=== PATIENT | male | born 1985 | race Caucasian/White ===

== ENCOUNTER 2020-02-15 15:37 | Emergency (ER) | payer SELFPAY ==
[2020-02-15] MEDS ORDERED: LORAZEPAM INJ 2 MG/1 ML VIAL IV ONE ×2 (15:58→17:10)
--- NOTE | 2020-02-15 16:06 | ER Document Report ---
ED General - General Chief Complaint: Seizure Stated Complaint: LEFT ARM PAIN,SPEECH SLURRED Time Seen by Provider: 02/15/20 16:04 Mode of Arrival: Wheelchair Information source: Patient, Parent Notes: Patient is a 34-year-old male was brought into the emergency room by his mother with complaint that he has had an altered mental status for the past week. Mother states that he does drink alcohol heavily patient states he is cut down to approximately a pint a day. Denies any past medical history. During physical examination however patient went into a full-blown tonic-clonic seizure so further evaluation at that time was not able to be done. Patient was taken to room 18 where he was given an IV and 2 mg of Ativan. Mother states that she has a history of diabetes and hypertension but he is not been checked ever. He does smoke denies any narcotics. No history of seizures in the past. He works as a cook at a local restaurant. Physical examination: Patient is a well-nourished well-developed 34-year-old male who on initial examination was answering questions appropriately when he went into full-blown seizure. TRAVEL OUTSIDE OF THE [place] IN LAST 30 DAYS: No - Related Data Allergies/Adverse Reactions: No Known Allergies Allergy (Verified 04/09/13 17:23) Past Medical History - Social History Smoking Status: Current Every Day Smoker Family History: Arthritis, CAD, CVA, DM, Hyperlipidemia, Hypertension, Malignan cy Patient has homicidal ideation: No Neurological Medical History: Reports: Hx Migraine Psychiatric Medical History: Reports: Hx Anxiety, Hx Depression Past Surgical History: Reports: Hx Oral Surgery, Hx Orthopedic Surgery - knee surgery - Immunizations Hx Diphtheria, Pertussis, Tetanus Vaccination: Yes Physical Exam - Vital signs Vitals: Temp Pulse Resp BP Pulse Ox 97.8 F 111 H 20 139/98 H 96 02/15/20 15:45 02/15/20 15:45 02/15/20 15:45 02/15/20 15:45 02/15/20 15:45 Course - Vital Signs Vital signs: Temp Pulse Resp BP Pulse Ox 97.8 F 111 H 20 139/98 H 96 02/15/20 15:45 02/15/20 15:45 02/15/20 15:45 02/15/20 15:45 02/15/20 15:45
--- NOTE | 2020-02-15 16:09 | ER Document Report ---
ED Medical Screen (RME) - General Chief Complaint: Seizure Stated Complaint: LEFT ARM PAIN,SPEECH SLURRED Time Seen by Provider: 02/15/20 16:04 Mode of Arrival: Wheelchair Information source: Patient, Parent Notes: Patient is a 34-year-old male was brought into the emergency room by his mother with complaint that he has had an altered mental status for the past week. Mother states that he does drink alcohol heavily patient states he is cut down to approximately a pint a day. Denies any past medical history. During physical examination however patient went into a full-blown tonic-clonic seizure so further evaluation at that time was not able to be done. Patient was taken to room 18 where he was given an IV and 2 mg of Ativan. Mother states that she has a history of diabetes and hypertension but he is not been checked ever. He does smoke denies any narcotics. No history of seizures in the past. He works as a cook at a local restaurant. Physical examination: Patient is a well-nourished well-developed 34-year-old male who on initial examination was answering questions appropriately when he went into full-blown seizure. Cardiac: Patient was tachycardic at 111 bpm. Lungs: Bilateral breath sounds decreased throughout faint end expiratory and inspiratory wheeze noted. Abdomen: Bowel sounds present all 4 quads further evaluation unable to ascertain at this time. Neuro: Patient on the original examination was awake alert and oriented x4. However did progress into a full tonic-clonic seizure. I have greeted and performed a rapid initial assessment of this patient. A comprehensive ED assessment and evaluation of the patient, analysis of test results and completion of the medical decision making process will be conducted by additional ED providers. Dictation of this chart was performed using voice recognition software; therefore, there may be some unintended grammatical errors. Patient was given 2 mg of Ativan since he was on continuous seizure from the time regarding from the triage room to bed 18. TRAVEL OUTSIDE OF THE [place] IN LAST 30 DAYS: No - Related Data Allergies/Adverse Reactions: No Known Allergies Allergy (Verified 04/09/13 17:23) Past Medical History Neurological Medical History: Reports: Hx Migraine Psychiatric Medical History: Reports: Hx Anxiety, Hx Depression Past Surgical History: Reports: Hx Oral Surgery, Hx Orthopedic Surgery - knee surgery - Immunizations Hx Diphtheria, Pertussis, Tetanus Vaccination: Yes Physical Exam - Vital signs Vitals: Temp Pulse Resp BP Pulse Ox 97.8 F 111 H 20 139/98 H 96 02/15/20 15:45 02/15/20 15:45 02/15/20 15:45 02/15/20 15:45 02/15/20 15:45 Course - Vital Signs Vital signs: Temp Pulse Resp BP Pulse Ox 97.8 F 111 H 20 139/98 H 96 02/15/20 15:45 02/15/20 15:45 02/15/20 15:45 02/15/20 15:45 02/15/20 15:45
[2020-02-15] MEDS ORDERED: NORMAL SALINE 1000 ML 1,000 ML IV ONE (16:11)
[2020-02-15] MEDS ORDERED: ONDANSETRON HCL INJ/PF 4 MG/2 ML SDV IV ONE (16:12)
[2020-02-15 16:27] LABS: ABSOLUTE LYMPHOCYTES (AUTO) 1.8 10^3/uL (0.5-4.7); ABSOLUTE MONOCYTES (AUTO) 0.6 10^3/uL (0.1-1.4); ABSOLUTE NEUT (AUTO) 2.7 10^3/uL (1.7-8.2); BASOPHILS % (AUTO) 0.5 % (0-2); EOSINOPHILS % (AUTO) 0.6 % (0-6); HEMATOCRIT 45.3 % (37.9-51.0); HEMOGLOBIN 15.8 g/dL (13.5-17.0); LYMPHOCYTES % (AUTO) 34.7 % (13-45); MEAN CORPUSCULAR HEMOGLOBIN 37.3 pg (27.0-33.4); MEAN CORPUSCULAR HGB CONC 34.9 g/dL (32.0-36.0); MEAN CORPUSCULAR VOLUME 107 fl (80-97); MONOCYTES % (AUTO) 12.1 % (3-13); PLATELET COUNT 182 10^3/uL (150-450); RED BLOOD COUNT 4.25 10^6/uL (4.35-5.55); RED CELL DISTRIBUTION WIDTH 13.5 % (11.5-14.0); SEGMENTED NEUTROPHILS % (AUTO) 52.1 % (42-78); TOTAL CELLS COUNTED % (AUTO) 100 %; WHITE BLOOD COUNT 5.2 10^3/uL (4.0-10.5)
[2020-02-15 16:45] LABS: ACETAMINOPHEN < 10 ug/mL (10-30); ALBUMIN 4.7 g/dL (3.5-5.0); ALCOHOL 286 mg/dL (NONE DETECTED); ALKALINE PHOSPHATASE 122 U/L (38-126); ANION GAP 15 (5-19); ASPARTATE AMINO TRANSFERASE 363 U/L (17-59); BILIRUBIN,DIRECT 0.1 mg/dL (0.0-0.4); BILIRUBIN,TOTAL 0.6 mg/dL (0.2-1.3); BLOOD UREA NITROGEN 7 mg/dL (7-20); CALCIUM 9.9 mg/dL (8.4-10.2); CARBON DIOXIDE 25 mmol/L (22-30); CHLORIDE 104 mmol/L (98-107); CREATINE KINASE 141 U/L (55-170); GLUCOSE 102 mg/dL (75-110); POTASSIUM 4.3 mmol/L (3.6-5.0); TOTAL PROTEIN 7.6 g/dL (6.3-8.2)
[2020-02-15 17:02] LABS: CREATINE KINASE MB 0.73 ng/mL (<4.55)
[2020-02-15 17:05] LABS: TROPONIN I < 0.012 ng/mL
--- NOTE | 2020-02-15 17:09 | ER Document Report ---
ED General - General Mode of Arrival: Wheelchair TRAVEL OUTSIDE OF THE [place] IN LAST 30 DAYS: No <RAJI FLORES - Last Filed: 02/15/20 20:31> <TAL BLACKMON - Last Filed: 02/15/20 21:35> <STEPHANIE OCHOA - Last Filed: 02/15/20 22:19> - General Chief Complaint: Seizure Stated Complaint: LEFT ARM PAIN,SPEECH SLURRED Time Seen by Provider: 02/15/20 16:04 Primary Care Provider: [facility] [Outside] - Follow up as needed () - HPI Notes: Chief complaint: Possible seizure History of present illness: 34-year-old male brought in by his mother with whom he lives for altered mental status shakiness. He is a heavy drinker and says he has "recently cut back" to a pint a day. He has been to detox multiple times. While he was in the triage area he had an apparent brief grand mal seizure. Patient complains of cramping of muscles and nausea. Says he is vomited twice today. He denies any hematemesis. Currently denies hallucinations. Reports he has been to detox 5 times previously. Currently employed as a cook. (RAJI FLORES) - Related Data Allergies/Adverse Reactions: No Known Allergies Allergy (Verified 04/09/13 17:23) Past Medical History - General Information source: Patient, Parent, [facility] Records - Social History Smoking Status: Current Every Day Smoker Frequency of alcohol use: Heavy Drug Abuse: None Lives with: Family Family History: Arthritis, CAD, CVA, DM, Hyperlipidemia, Hypertension, Malignancy Patient has homicidal ideation: No Neurological Medical History: Reports: Hx Migraine Psychiatric Medical History: Reports: Hx Anxiety, Hx Depression Past Surgical History: Reports: Hx Oral Surgery, Hx Orthopedic Surgery - Immunizations Hx Diphtheria, Pertussis, Tetanus Vaccination: Yes <RAJI FLORES - Last Filed: 02/15/20 20:31> Review of Systems <RAJI FLORES - Last Filed: 02/15/20 20:31> - Review of Systems Notes: Constitutional: Negative for fever. HENT: Negative for sore throat. Eyes: Negative for visual changes. Cardiovascular: Negative for chest pain. Respiratory: Negative for shortness of breath. Gastrointestinal: As per HPI. Genitourinary: Negative for dysuria. Musculoskeletal: Negative for back pain. Skin: Large cyst left posterior neck area which has been present for several years. Neurological: As per HPI. 10 point ROS negative except as marked above and in HPI. Adul (RAJI FLORES) Physical Exam <RAJI FLORES - Last Filed: 02/15/20 20:31> - Vital signs Vitals: Temp Pulse Resp BP Pulse Ox 97.8 F 111 H 20 139/98 H 96 02/15/20 15:45 02/15/20 15:45 02/15/20 15:45 02/15/20 15:45 02/15/20 15:45 - Notes Notes: GENERAL: Highly intoxicated chronically ill-appearing male of approximately stated age with very strong odor of alcohol and slurred speech. SKIN: Good turgor no rashes. Patient has a 5.0 cm cystic lesion of the left posterior neck area which is slightly red and tender without any spontaneous drainage. HEAD: Normocephalic atraumatic. EYES: PERRLA. EOMI. Conjunctivae bilaterally injected. Mild edema of upper and lower lids bilaterally. EARS: CANALS AND TMS CLEAR. NOSE: CLEAR. MOUTH: Moist mucosa. Dentulous. No stridor or edema. No drooling. NECK: Cyst left posterolateral cervical area as described above. Supple. No masses or thyromegaly. No adenopathy. Carotids 2+ without bruits. No JVD. BACK: Symmetrical without tenderness. CHEST: Respirations unlabored. Breath sounds clear and symmetrical. HEART: Regular rhythm. No murmur gallop or rub. ABDOMEN: Soft nontender without masses, organomegaly or rebound. Bowel sounds normally active. No bruits. GENITALIA: Deferred. EXTREMITIES: No edema. No calf tenderness. Cap refill less than 1.5 seconds. Dorsalis pedis and posterior tibial pulses 3+ and symmetrical. NEUROLOGICAL: GCS 15. Sleepy but oriented x3. Ataxic gait. Moderate generalized tremor present fluent speech. Cranial nerves II through XII intact. Sensorimotor and cerebellar normal. Normal tone. PSYCHIATRIC: Appropriate affect. (RAJI FLORES) Course - Laboratory Result Diagrams: 02/15/20 16:13 02/15/20 16:13 <RAJI FLORES - Last Filed: 02/15/20 20:31> - Laboratory Result Diagrams: 02/15/20 16:13 02/15/20 16:13 <TAL BLACKMON - Last Filed: 02/15/20 21:35> - Laboratory Result Diagrams: 02/15/20 16:13 02/15/20 16:13 <STEPHANIE OCHOA - Last Filed: 02/15/20 22:19> - Re-evaluation Re-evalutation: 02/15/20 20:32 Patient has evidence of an alcoholic hepatitis and is acutely intoxicated. He is not suicidal or homicidal and is not currently hallucinating. He is mildly tremulous. Blood alcohol was 267. He is receiving IV banana bag. His chemistry profile is otherwise unremarkable. His troponin is normal. His chest x-ray is normal. Head CT was negative. I talked with patient and his mother about his alcoholism and he would be interested in exploring possibility of detox again. Patient has received an IV banana bag. Upon completion the bag I think he will be adequately cleared medically for evaluation by behavioral service. Consultation has been requested. (RAJI FLORES) 02/15/20 22:19 Care of this patient was turned over during my shift. In short he has a history of alcohol dependence, evidence of alcohol hepatitis, and a questionable seizure. He was stable here. He had no further seizure activity. He was cleared for behavioral health. His mother feels comfortable taking him home, they will follow up with outpatient alcohol detox programs tomorrow. He is discharged. (STEPHANIE OCHOA) - Vital Signs Vital signs: Temp Pulse Resp BP Pulse Ox 97.8 F 111 H 18 111/97 H 97 02/15/20 15:45 02/15/20 15:45 02/15/20 20:31 02/15/20 20:31 02/15/20 20:31 - Laboratory Laboratory results interpreted by me: 02/15/20 02/15/20 02/15/20 16:13 16:13 16:30 RBC 4.25 L MCV 107 H MCH 37.3 H Lactic Acid 2.9 H AST 363 H ALT 335 H Acetaminophen < 10 L Discharge <RAJI FLORES - Last Filed: 02/15/20 20:31> <TAL BLACKMON - Last Filed: 02/15/20 21:35> <FRIES,LUNDYN M - Last Filed: 02/15/20 22:19> - Discharge Clinical Impression: Acute alcohol intoxication, Chronic alcoholism Alcoholic hepatitis Qualifiers: Ascites presence: unspecified Qualified Code(s): K70.10 - Alcoholic hepatitis without ascites Condition: Stable Disposition: HOME, SELF-CARE Additional Instructions: You have been evaluated both medical and behavioral teams have been deemed appropriate for discharge. You have been provided a local resource list of detox facilities, mobile crisis contact information and residential treatment options. You must be at least 24 hours post seizure prior to requesting evaluation for detox assistance at [facility]. Please call them to make an appointment for intake. You are highly recommended to follow-up with residential or intensive outpatient treatment for alcohol abuse after finishing detox. ACUTE ALCOHOL INTOXICATION and ALCOHOL ABUSE: Your evaluation revealed very high levels of alcohol. You can from drinking a large amount of alcohol rapidly! Further, there's the risk of falls, traffic accidents, and fights. A high portion (about 50 percent) of the serious injuries seen in hospital emergency rooms are caused by alcohol. Alcohol overdosage is usually due to an underlying emotional or psychiatric problem. You may benefit from counselling. If "binge" drinking is an ongoing problem for you, or if you drink ANY AMOUNT of alcohol EVERY day, you most likely have a tendency to alcoholism. You should avoid alcohol totally. We can refer you for treatment. Persons with alcohol problems are often also prone to other addictions -- you should discuss any use of medications or drugs with the doctor. You should be watched at home for the next several hours by someone who has not been drinking. Get extra fluids for the next 24 hours. Call the doctor if there is repeated vomiting, increasing headache, decreasing level of alertness, or any other worsening. CHRONIC ALCOHOLISM and ALCOHOL ABUSE: Your evaluation reveals evidence of chronic alcoholism, an addiction to alcohol. The tendency to alcoholism may be inherited. Chronic use of alcohol weakens muscles, causes fatty deposits in the liver, damages the stomach, makes you more prone to infections, and can cause defects in unborn children. In the long run, brain atrophy and cirrhosis of the liver result. You are also at greater risk for certain types of cancer, such as cancer of the mouth, throat, stomach, and liver. Counselling services are available to help you. In-hospital treatment programs often help. Support groups such as Alcoholics Anonymous can be very useful in beating this addiction. Your physician can make a referral for you. As alcoholics often are prone to other addictions, you should discuss your use of any other medications with the doctor. ALCOHOL WITHDRAWAL: Your symptoms are caused by alcohol withdrawal. After a period of frequent drinking, the brain and body are changed by the alcohol. When you quit or reduce your drinking, the nervous system becomes unstable. Withdrawal symptoms can start a few hours after your last drink, but sometimes don't begin until a couple of days later. Symptoms can include shakiness, sweating, insomnia, nausea, vomiting, fearfulness, hallucinations, and seizures. In addition to the acute effects of alcohol withdrawal, we often have to deal with the medical effects of alcoholism. These problems often include dehydration, stomach irritation, intestinal bleeding, low blood sugar, liver disease, and pancreas inflammation. Treatment for alcohol withdrawal includes mild sedatives, vitamins, and fluids. You need to be with someone who can help if symptoms become severe. Many patients can withdraw at home. Admission to the hospital or a detox facility may be necessary if withdrawal symptoms are severe and uncontrollable. Abstaining from alcohol is the only effective long-term treatment. If you start drinking again, you will not be able to control yourself after the first drink. Treatment programs are available. In addition, many alcoholics benefit from Alcoholics Anonymous or other support groups available through your counselor or taoism transportation job titles. [facility] and [facility]TE[facility] are support groups for friends and family members of an alcoholic. Go to the emergency room if you develop persistent vomiting, severe abdominal pain, fever, shortness of breath, hallucinations, uncontrollable tremors, or seizures. Referrals: [facility] [Outside] - Follow up as needed ()
--- NOTE | 2020-02-15 17:39 | EKG REPORT ---
SEVERITY:- NORMAL ECG - SINUS RHYTHM : Confirmed by: Inder Powell MD 15-Feb-2020 17:37:09
--- NOTE | 2020-02-15 17:41 | RADIOLOGY REPORT (SQ) ---
EXAM DESCRIPTION: CHEST SINGLE VIEW IMAGES COMPLETED DATE/TIME: 02/15/2020 4:18 pm REASON FOR STUDY: seizure COMPARISON: 12/18/2013 EXAM PARAMETERS: NUMBER OF VIEWS: One view. TECHNIQUE: Single frontal radiographic view of the chest acquired. RADIATION DOSE: NA LIMITATIONS: None. FINDINGS: LUNGS AND PLEURA: No opacities, masses or pneumothorax. No pleural effusion. MEDIASTINUM AND HILAR STRUCTURES: No masses. Contour normal. HEART AND VASCULAR STRUCTURES: Heart normal in size. Normal vasculature. BONES: No acute findings. HARDWARE: None in the chest. OTHER: No other significant finding. IMPRESSION: NO ACUTE RADIOGRAPHIC FINDING IN THE CHEST. TECHNICAL DOCUMENTATION: JOB ID: [id number] 2010 [employer]- All Rights Reserved Reading location - IP/workstation name: [email or web address]
[2020-02-15] MEDS: NORMAL SALINE 1000 ML 1,000 ML with POTASSIUM CHLORIDE 20 MEQ, MAGNESIUM SULFATE 8 MEQ,... IV SCH ×10 (17:49→18:26)
--- NOTE | 2020-02-15 18:13 | RADIOLOGY REPORT (SQ) ---
EXAM DESCRIPTION: CT HEAD WITHOUT IMAGES COMPLETED DATE/TIME: 02/15/2020 5:58 pm REASON FOR STUDY: seizure COMPARISON: 12/20/2013 TECHNIQUE: Axial images acquired through the brain without intravenous contrast. Images reviewed wi th bone, brain and subdural windows. Additional sagittal and coronal reconstructions were generated. Images stored on PACS. All CT scanners at this facility use dose modulation, iterative reconstruction, and/or weight based d osing when appropriate to reduce radiation dose to as low as reasonably achievable (ALARA). [facility]: Dose Right [facility]: CareDose [facility]: Dose Right [facility]: Teradose 4D [facility]: [employer] RADIATION DOSE: CT Rad equipment meets quality standard of care and radiation dose reduction techniq ues were employed. CTDIvol: 53.2 mGy. DLP: 964 mGy-cm. mGy. LIMITATIONS: None. FINDINGS: VENTRICLES: Normal size and contour. CEREBRUM: No masses. No hemorrhage. No midline shift. No evidence for acute infarction. Re- demons tration of calcific densities within the bilateral periventricular frontal lobe white matter. - white matter differentiation and attenuation are otherwise normal. CEREBELLUM: No masses. No hemorrhage. No alteration of density. No evidence for acute infarction. EXTRAAXIAL SPACES: No fluid collections. No masses. ORBITS AND GLOBE: No intra- or extraconal masses. Normal contour of globe without masses. CALVARIUM: No fracture. PARANASAL SINUSES: No fluid or mucosal thickening. SOFT TISSUES: No mass or hematoma. OTHER: No other significant finding. IMPRESSION: No acute intracranial abnormality. Re- demonstration of periventricular calcifications which are nonspecific, but likely represent sequela of previous torch infection or other inflammatory process. EVIDENCE OF ACUTE STROKE: NO. COMMENT: Quality ID # [id number]: Final reports with documentation of one or more dose reduction techniques (e.g., Automated exposure control, adjustment of the mA and/or kV according to patient size, use of iterative reconstruction technique) TECHNICAL DOCUMENTATION: JOB ID: [id number] 2010 [employer]- All Rights Reserved Reading location - IP/workstation name: [email or web address]
--- NOTE | 2020-02-15 21:20 | PSYCHOLOGICAL NOTE ---
Psych Note - Psych Note Date seen by psych provider: 02/15/20 Time seen by psych provider: 20:40 Psych Note: Reason for Consult: Detox Patient reports he would like to go to detox. Per patient's mother at bedside, patient had a seizure today. Patient attempts to engage but has been provided medication and is current intoxicated. Patient mother confirms she understands 24 hours after patient's last seizure she can contact [facility] to schedule intake appointment for the patient. Patient has been to [facility] previously. Patient is semialert and orientated to person, place, time and circumstance. Patient is currently intoxicated and received medication. He does denies suicidal and homicidal ideation. Patient denies hallucinations. Delusions are absent behavior is congruent with an intact reality based presentation i.e. organized linear thought process. Patient does keep his eyes closed throughout talking with clinician. Attention and concentration are currently impacted due to intoxication and medication. Insight, judgment, impulse control are historically poor due to patient's long-term substance abuse; alcohol. Impression plan: Patient is cleared from acute psychiatric services. Patient under the influence after reported seizure. Patient's mother is at bedside discloses she will be part of patient's plan of care to assist in obtaining further services such as detox. Patient is unable to go directly to the [facility] for detox because of reported seizure today. Patient's mother confirms she understands 24 hours must patch seizure-free prior to being evaluated for detox assistance at [facility]. Clinician provided detox referral list which includes [facility] phone number, mobile crisis contact information and some long-term substance abuse treatment options such as rehab. Patient is highly encouraged to follow-up detox with either intensive outpatient substance abuse treatment or rehab. Dr. Bhatia was consulted to care management of this patient; attending physicians in agreement with recommendations and disposition.
[2020-02-15 22:49] VITALS: BP 131/87
== END 2020-02-15 22:51 | disposition home or self-care (01) ==
LOC: ER 15:37
DX: K70.10 Alcoholic hepatitis without ascites (principal); F10.229 Alcohol dependence with intoxication, unspecified; Y90.8 Blood alcohol level of 240 mg/100 ml or more; R41.82 Altered mental status, unspecified; R56.9 Unspecified convulsions; R47.81 Slurred speech; R11.10 Vomiting, unspecified; F17.200 Nicotine dependence, unspecified, uncomplicated
CPT/HCPCS: 93005; 99285; 96361; 96374; 96375; 36415; 87040; 82553; 80307 ×2; 82550; 83605; 83735; 85025; 80053; 84484; 87150 ×26; 71045; 70450; 93010; J3475; J2060; J3480; J3411; J2405; J7030; J3490; 87077

== ENCOUNTER 2020-02-16 21:31 | Inpatient (IN) | payer SELFPAY ==
[2020-02-16] MEDS ORDERED: MIDAZOLAM 2 MG/2 ML INJ IV ONE (21:34)
--- NOTE | 2020-02-16 21:42 | ER Document Report ---
ED Seizure - General Mode of Arrival: Medic Information source: Emergency Med Personnel TRAVEL OUTSIDE OF THE [place] IN LAST 30 DAYS: No - HPI Patient complains to provider of: History of seizures Quality of pain: Achy Severity: Mild Pain Level: 1 <JESUSKUNAL Gene LEMONS - Last Filed: 02/17/20 03:02> <YVONNE RAPP - Last Filed: 02/17/20 16:28> - General Chief Complaint: Probable Seizure Stated Complaint: POSSIBLE SEIZURES Notes: Chief Complaint: Seizure Stated Complaint: LEFT ARM PAIN,SPEECH SLURRED Time Seen by Provider: 02/15/20 16:04 Primary Care Provider: [facility] [Outside] - Follow up as needed () - HPI Notes: Chief complaint: Possible seizure History of present illness: 34-year-old male brought in by his mother with whom he lives for altered mental status shakiness. He is a heavy drinker and says he has "recently cut back" to a pint a day. He has been to detox multiple times. While he was in the triage area he had an apparent brief grand mal seizure. Patient complains of cramping of muscles and nausea. Says he is vomited twice today. He denies any hematemesis. Currently denies hallucinations. Reports he has been to detox 5 times previously. Currently employed as a cook. (RAJI PATTERSON) - Related Data Allergies/Adverse Reactions: No Known Allergies Allergy (Verified 04/09/13 17:23) Past Medical History - General Information source: Patient, Parent, [facility] Records - Social History Smoking Status: Current Every Day Smoker Frequency of alcohol use: Heavy Drug Abuse: None Lives with: Family Family History: Arthritis, CAD, CVA, DM, Hyperlipidemia, Hypertension, Malignancy Patient has homicidal ideation: No Neurological Medical History: Reports: Hx Migraine Psychiatric Medical History: Reports: Hx Anxiety, Hx Depression Past Surgical History: Reports: Hx Oral Surgery, Hx Orthopedic Surgery - Immunizations Hx Diphtheria, Pertussis, Tetanus Vaccination: Yes <RAJI PATTERSON - Last Filed: 02/15/20 20:31> Review of Systems <RAJI PATTERSON - Last Filed: 02/15/20 20:31> - Review of Systems Notes: Constitutional: Negative for fever. HENT: Negative for sore throat. Eyes: Negative for visual changes. Cardiovascular: Negative for chest pain. Respiratory: Negative for shortness of breath. Gastrointestinal: As per HPI. Genitourinary: Negative for dysuria. Musculoskeletal: Negative for back pain. Skin: Large cyst left posterior neck area which has been present for several years. Neurological: As per HPI. 10 point ROS negative except as marked above and in HPI. Adul (RAJI PATTERSON) Physical Exam <RAJI PATTERSON - Last Filed: 02/15/20 20:31> - Vital signs Vitals: Temp Pulse Resp BP Pulse Ox 97.8 F 111 H 20 139/98 H 96 02/15/20 15:45 02/15/20 15:45 02/15/20 15:45 02/15/20 15:45 02/15/20 15:45 - Notes Notes: GENERAL: Highly intoxicated chronically ill-appearing male of approximately stated age with very strong odor of alcohol and slurred speech. SKIN: Good turgor no rashes. Patient has a 5.0 cm cystic lesion of the left posterior neck area which is slightly red and tender without any spontaneous drainage. HEAD: Normocephalic atraumatic. EYES: PERRLA. EOMI. Conjunctivae bilaterally injected. Mild edema of upper and lower lids bilaterally. EARS: CANALS AND TMS CLEAR. NOSE: CLEAR. MOUTH: Moist mucosa. Dentulous. No stridor or edema. No drooling. NECK: Cyst left posterolateral cervical area as described above. Supple. No masses or thyromegaly. No adenopathy. Carotids 2+ without bruits. No JVD. BACK: Symmetrical without tenderness. CHEST: Respirations unlabored. Breath sounds clear and symmetrical. HEART: Regular rhythm. No murmur gallop or rub. ABDOMEN: Soft nontender without masses, organomegaly or rebound. Bowel sounds normally active. No bruits. GENITALIA: Deferred. EXTREMITIES: No edema. No calf tenderness. Cap refill less than 1.5 seconds. Dorsalis pedis and posterior tibial pulses 3+ and symmetrical. NEUROLOGICAL: GCS 15. Sleepy but oriented x3. Ataxic gait. Moderate generalized tremor present fluent speech. Cranial nerves II through XII intact. Sensorimotor and cerebellar normal. Normal tone. PSYCHIATRIC: Appropriate affect. (ARJI PATTERSON) Course The patient has chosen to leave the facility against medical advice. The relevant issues have been reviewed and discussed with the patient and family at the bedside. At the time of this assessment there is no indication for involuntary commitment. The patient is alert, oriented, and able to express clearly their reasoning for not wanting to remain in the emergency department for further treatment. The patient is not clinically psychotic, intoxicated, and denies and suicidal ideation. Differential or suspected diagnoses based on medical screening exam: . The patient is aware of the concerning diagnoses and acknowledges understanding of the reasons for the following recommendations: The following recommendations/services were offered and refused: The following risks were explained: , permanent disability, loss of function Clinical impression: Patient is competent to make decisions regarding the medical that is being offered. She knows a great 02/16/20 21:42 - ED Nursing Note by ROOPA JONES [facility]ly [facility] Num: [id number] : 1985 Patient Age: 34 pt brought in by ems for possible seizure from [place]. pt was possibly having a seizure on arrival. pt answered nurse during his seizure. pt is shaking. pt has hx of alcoholism. pt is alert and oriented. MY NOTES upon arrival via EMS 34 year old white male Patient arrives by EMS Frank Ozuna from [facility]. He began to have some seizure-like activity despite drinking some rum this morning. Patient is awake and alert and advises "he has cool shakes." He also complains of some nausea. He was sent there to [place] this morning after his alcohol level was with acceptable levels. Patient was seen by Dr. Patterson this morning for history of alcohol abuse and seizure-like activity. The tremors I see here are present when patient is asleep as well as awake and I suspect patient has DTs at this time. He will therefore received Versed and Phenergan IV (KUNAL LEE JR) - Related Data Allergies/Adverse Reactions: No Known Allergies Allergy (Verified 04/09/13 17:23) Past Medical History - General Information source: Patient - Social History Smoking Status: Current Every Day Smoker Cigarette use (# per day): Yes Chew tobacco use (# tins/day): No Smoking Education Provided: Yes Frequency of alcohol use: Heavy Drug Abuse: None Occupation: cook Lives with: Family Family History: Arthritis, CAD, CVA, DM, Hyperlipidemia, Hypertension, Malignancy Patient has suicidal ideation: No Patient has homicidal ideation: No Neurological Medical History: Reports: Hx Migraine Psychiatric Medical History: Reports: Hx Anxiety, Hx Depression Past Surgical History: Reports: Hx Oral Surgery, Hx Orthopedic Surgery - Immunizations Hx Diphtheria, Pertussis, Tetanus Vaccination: Yes <KUNAL LEE JR - Last Filed: 02/17/20 03:02> Review of Systems - Review of Systems Constitutional: See HPI, Weakness EENT: No symptoms reported Cardiovascular: No symptoms reported Respiratory: No symptoms reported Gastrointestinal: No symptoms reported Genitourinary: No symptoms reported Male Genitourinary: No symptoms reported Musculoskeletal: No symptoms reported Skin: No symptoms reported Hematologic/Lymphatic: No symptoms reported Neurological/Psychological: See HPI, Weakness, Seizure -: Yes All other systems reviewed and negative <KUNAL LEE JR - Last Filed: 02/17/20 03:02> Physical Exam - Vital signs Interpretation: Normal - General General appearance: Appears well, Alert - HEENT Head: Normocephalic, Atraumatic Eyes: Normal Pupils: PERRL - Respiratory Respiratory status: No respiratory distress Chest status: Nontender Breath sounds: Normal Chest palpation: Normal - Cardiovascular Rhythm: Regular Heart sounds: Normal auscultation Murmur: No - Abdominal Inspection: Normal Distension: No distension Bowel sounds: Normal Tenderness: Nontender Organomegaly: No organomegaly - Rectal Prostate: Other - deferred - Genitourinary Scrotum: Other - deferred - Back Back: Normal, Nontender - Extremities General upper extremity: Normal inspection, Nontender, Normal color, Normal ROM, Normal temperature General lower extremity: Normal inspection, Nontender, Normal color, Normal ROM, Normal temperature, Normal weight bearing. No: Gabriele's sign - Neurological Neuro grossly intact: Yes Cognition: Normal Orientation: AAOx4 Conner Coma Scale Eye Opening: Spontaneous Conner Coma Scale Verbal: Oriented Conner Coma Scale Motor: Obeys Commands Conner Coma Scale Total: 15 Speech: Normal Motor strength normal: LUE, RUE, LLE, RLE Sensory: Normal - Psychological Associated symptoms: Normal affect, Normal mood - Skin Skin Temperature: Warm Skin Moisture: Dry Skin Color: Normal <JESUSKUNAL Mills - Last Filed: 02/17/20 03:02> - Vital signs Vitals: Resp Pulse Ox 14 94 02/16/20 21:36 02/16/20 21:36 Course - Laboratory Result Diagrams: 02/17/20 02:00 02/17/20 02:00 <KUNAL LEE JR - Last Filed: 02/17/20 03:02> - Laboratory Result Diagrams: 02/17/20 02:00 02/17/20 02:00 - Diagnostic Test Radiology reviewed: Image reviewed, Reports reviewed <YVONNE RAPP - Last Filed: 02/17/20 16:28> - Re-evaluation Re-evalutation: 02/17/20 I assumed care of the patient from HOWARD Mark this morning. Patient apparently went to [place] for alcohol detox. While he was there he apparently had a seizure. This would make his second seizure within the past 24 hours. He is an alcoholic who typically drinks 2 pints of alcohol daily but was trying to only drink 1 pint. He came in yesterday with complaints of seizure and then was doing well and was sent for [place] for detox. However he came back last night. A psych consult was ordered on the patient. And have spoken with the behavioral health team. Patient cannot go back to [place] because he has had the seizures. He will need medical detox. Discussed the patient with my attending, Dr. Christopher mccoy, he agrees with the plan for me to call the hospitalist team for admission. I also rounded on the patient and he does want to get detox and is willing to stay for admission. He still a little tremulous. Admits to a little bit of nausea and a slight headache. Tylenol has helped with the headache. He was given Versed and Phenergan overnight. His heart rate has improved and is now in the 80s. 02/17/20 16:[address] Garza with the hospitalist team. She accepts the patient onto her service. We discussed the patient's past 24 hours with us and his progression of his alcohol withdrawal symptoms. She is aware that the patient has had 2 seizures and 24 hours and that he can no longer do outpatient alcohol detox. She is aware of the patient's most recent blood work and vital signs. She is aware that the patient got Versed and Phenergan last night. She is aware that he has had a tremor still today as well as mild headache and nausea. He has been mildly hypertensive as well. She would like for the patient to go to a telemetry bed. (YVONNE RAPP) - Vital Signs Vital signs: Temp Pulse Resp BP Pulse Ox 98.4 F 26 H 135/95 H 95 02/17/20 11:38 02/17/20 15:14 02/17/20 09:31 02/17/20 15:14 - Laboratory Laboratory results interpreted by me: 02/17/20 02/17/20 02:00 02:00 RBC 3.69 L MCV 105 H MCH 37.5 H Plt Count 136 L BUN 6 L AST 255 H ALT 288 H Discharge <KUNAL LEE JR - Last Filed: 02/17/20 03:02> - Discharge Admitting Provider: Kayla (Hospitalist) Unit Admitted: Telemetry <YVONNE RAPP - Last Filed: 02/17/20 16:28> - Discharge Clinical Impression: ETOH abuse, Coarse tremors Condition: Good Disposition: ADMITTED INPATIENT
[2020-02-16] MEDS ORDERED: PROMETHAZINE HCL INJ 25 MG/1 ML VIAL IV ONE (22:29)
[2020-02-17 02:17] LABS: ABSOLUTE LYMPHOCYTES (AUTO) 1.4 10^3/uL (0.5-4.7); ABSOLUTE MONOCYTES (AUTO) 0.4 10^3/uL (0.1-1.4); ABSOLUTE NEUT (AUTO) 2.4 10^3/uL (1.7-8.2); BASOPHILS % (AUTO) 0.5 % (0-2); EOSINOPHILS % (AUTO) 0.5 % (0-6); HEMATOCRIT 38.6 % (37.9-51.0); HEMOGLOBIN 13.8 g/dL (13.5-17.0); LYMPHOCYTES % (AUTO) 32.1 % (13-45); MEAN CORPUSCULAR HEMOGLOBIN 37.5 pg (27.0-33.4); MEAN CORPUSCULAR HGB CONC 35.8 g/dL (32.0-36.0); MEAN CORPUSCULAR VOLUME 105 fl (80-97); MONOCYTES % (AUTO) 9.8 % (3-13); PLATELET COUNT 136 10^3/uL (150-450); RED BLOOD COUNT 3.69 10^6/uL (4.35-5.55); RED CELL DISTRIBUTION WIDTH 13.3 % (11.5-14.0); SEGMENTED NEUTROPHILS % (AUTO) 57.1 % (42-78); TOTAL CELLS COUNTED % (AUTO) 100 %; WHITE BLOOD COUNT 4.2 10^3/uL (4.0-10.5)
[2020-02-17 02:35] LABS: ALCOHOL 52 mg/dL (NONE DETECTED); ALKALINE PHOSPHATASE 92 U/L (38-126); ANION GAP 6 (5-19); ASPARTATE AMINO TRANSFERASE 255 U/L (17-59); BILIRUBIN,DIRECT 0.2 mg/dL (0.0-0.4); BILIRUBIN,TOTAL 0.9 mg/dL (0.2-1.3); BLOOD UREA NITROGEN 6 mg/dL (7-20); CALCIUM 9.5 mg/dL (8.4-10.2); CARBON DIOXIDE 29 mmol/L (22-30); CHLORIDE 104 mmol/L (98-107); GLUCOSE 86 mg/dL (75-110); POTASSIUM 4.4 mmol/L (3.6-5.0); TOTAL PROTEIN 6.5 g/dL (6.3-8.2)
--- NOTE | 2020-02-17 07:26 | EKG REPORT ---
SEVERITY:- NORMAL ECG - SINUS RHYTHM : Confirmed by: Inder Powell MD 17-Feb-2020 07:25:28
--- NOTE | 2020-02-17 07:29 | EKG REPORT ---
SEVERITY:- DEFECTIVE ECG - ARTEFACT DUE TO SEVERE BASELINE DISTORTION SINUS RHYTHM NONDIAGNOSTIC : Confirmed by: Inder Powell MD 17-Feb-2020 07:29:08
[2020-02-17] MEDS ORDERED: ACETAMINOPHEN 325 MG TABLET PO ONE (11:46)
[2020-02-17] MEDS ORDERED: NORMAL SALINE 1000 ML 1,000 ML IV PRN (15:13)
[2020-02-17] MEDS ORDERED: LORAZEPAM INJ 2 MG/1 ML VIAL IV SCH ×4 (15:15→16:35)
--- NOTE | 2020-02-17 15:50 | RADIOLOGY REPORT (SQ) ---
EXAM DESCRIPTION: CT HEAD WITHOUT IMAGES COMPLETED DATE/TIME: 02/17/2020 3:40 pm REASON FOR STUDY: seizure COMPARISON: 02/15/2020 TECHNIQUE: Axial images acquired through the brain without intravenous contrast. Images reviewed wi th bone, brain and subdural windows. Additional sagittal and coronal reconstructions were generated. Images stored on PACS. All CT scanners at this facility use dose modulation, iterative reconstruction, and/or weight based d osing when appropriate to reduce radiation dose to as low as reasonably achievable (ALARA). [facility]: Dose Right [facility]: CareDose [facility]: Dose Right [facility]: Teradose 4D [facility]: FERTILE EARTH SYSTEMS RADIATION DOSE: CT Rad equipment meets quality standard of care and radiation dose reduction techniq ues were employed. CTDIvol: 53.2 mGy. DLP: 937 mGy-cm. mGy. LIMITATIONS: None. FINDINGS: VENTRICLES: Normal size and contour. CEREBRUM: No masses. No hemorrhage. No midline shift. No evidence for acute infarction. Normal gra y/white matter differentiation. No areas of low density in the white matter. Again seen are the bila teral periventricular parenchymal calcifications, stable. CEREBELLUM: No masses. No hemorrhage. No alteration of density. No evidence for acute infarction. EXTRAAXIAL SPACES: No fluid collections. No masses. ORBITS AND GLOBE: No intra- or extraconal masses. Normal contour of globe without masses. CALVARIUM: No fracture. PARANASAL SINUSES: No fluid or mucosal thickening. SOFT TISSUES: No mass or hematoma. OTHER: No other significant finding. IMPRESSION: No evidence of acute intracranial process. Stable bilateral periventricular parenchymal calcifications as previously noted. EVIDENCE OF ACUTE STROKE: NO. COMMENT: Quality ID # [id number]: Final reports with documentation of one or more dose reduction techniques (e.g., Automated exposure control, adjustment of the mA and/or kV according to patient size, use of iterative reconstruction technique) TECHNICAL DOCUMENTATION: JOB ID: [id number] 2010 [employer]- All Rights Reserved Reading location - IP/workstation name: [email or web address]
[2020-02-17] MEDS ORDERED: METOCLOPRAMIDE HCL INJ/PF 10 MG/2 ML SDV IV SCH (16:00)
[2020-02-17] MEDS ORDERED: LORAZEPAM INJ 2 MG/1 ML VIAL IV PRN ×3 (16:36→16:42)
[2020-02-17] MEDS ORDERED: LORAZEPAM INJ 2 MG/1 ML VIAL IV ONE (16:42)
[2020-02-17 16:45] LABS: URINE AMPHETAMINES SCREEN NEGATIVE; URINE BARBITURATES SCREEN NEGATIVE; URINE COCAINE SCREEN NEGATIVE; URINE MARIJUANA (THC) SCREEN NEGATIVE; URINE METHADONE SCREEN NEGATIVE; URINE PHENCYCLIDINE SCREEN NEGATIVE
[2020-02-17 16:46] LABS: URINE BENZODIAZEPINES SCREEN UNCONFIRMED POSITIVE
--- NOTE | 2020-02-17 17:01 | PDOC H&P ---
History of Present Illness Admission Date/PCP: 02/17/20 15:35 Patient complains of: Alcohol withdrawal and seizure episodes. History of Present Illness: LUCIAN CARTWRIGHT is a 34 year old male, history of alcohol abuse who came into ED today due to seizure episodes. First episode of seizure occurred Saturday at his work and it was witnessed by his coworkers. According to the patient he started having muscle spasms, eye twitching, however he is unsure if he lost consciousness, but he denied having any bowel or bladder incontinence. Seizure lasted less than 5 minutes and this occurred when he had alcohol in his system. Second episode of seizure happened last Saturday in the car witnessed by his mom, with the same description, lasted less than 5 minutes. He was brought to [place] emergency room on February 14 where he had oh another witnessed tonic-clonic seizure and was given 2 mg of Ativan. Patient was observed in the ED and was cleared for discharge to [facility]. When he got there he had another episode of seizure and had to be transferred back to the ED. He denied any previous episodes of seizure or previous hospitalization for alcohol withdrawal. He usually drinks a pint of rum a day and he has tried to cut back on the day he had a seizure. He denies any drug use. Behavioral health was consulted In the ED blood pressure was 122/84, heart rate 78, temperature 97.6, respiratory rate of 26, O2 sat 97% on room air. CBC was unremarkable as well as a CMP. Blood alcohol level was 286 on February 14 with a repeat of 52. U tox positive for benzos this likely reflects Ativan he was given for the tonic- clonic seizure. Hospitalist service was to evaluate the patient for possible admission. Past Medical History Cardiac Medical History: Reports: Hypertension Pulmonary Medical History: Reports: None Denies: Intubation, Respiratory Failure EENT Medical History: Reports: None Neurological Medical History: Reports: Migraine Endocrine Medical History: Reports: None Malignancy Medical History: Reports: None Musculoskeltal Medical History: Reports: None Skin Medical History: Reports: None Psychiatric Medical History: Reports: Depression Past Surgical History Past Surgical History: Reports: Orthopedic Surgery, Tonsillectomy Social History Lives with: Family Smoking Status: Current Every Day Smoker Electronic Cigarette use?: No - Advance Directive Resuscitation Status: Full Code Surrogate healthcare decision maker:: Has appointed his mom Pranav Padilla as his healthcare power of immigration attorney. Family History Family History: Arthritis, CAD, CVA, DM, Hyperlipidemia, Hypertension, Malignancy Parental Family History Reviewed: Yes Children Family History Reviewed: Yes Sibling(s) Family History Reviewed.: Yes Medication/Allergy Home Medications: Clindamycin HCl [Cleocin 300 mg Capsule] 300 mg PO Q6 #20 capsule 08/02/15 No Home Medications 08/02/15 Prednisone [Deltasone 20 mg Tablet] 3 tab PO DAILY 3 Days tablet 08/02/15 Allergies/Adverse Reactions: No Known Allergies Allergy (Verified 04/09/13 17:23) Review of Systems Constitutional: PRESENT: headache(s) Eyes: ABSENT: visual disturbances Ears: ABSENT: hearing changes Nose, Mouth, and Throat: ABSENT: mouth pain Cardiovascular: ABSENT: chest pain, dyspnea on exertion, edema Respiratory: ABSENT: cough, dyspnea, hemoptysis Gastrointestinal: ABSENT: diarrhea, hematemesis Genitourinary: ABSENT: difficulty urinating Musculoskeletal: ABSENT: joint swelling Integumentary: PRESENT: diaphoresis Neurological: PRESENT: convulsions, tremor(s) Psychiatric: ABSENT: hallucinations, homidical ideation, suicidal ideation Physical Exam Vital Signs: Temp Pulse Resp BP Pulse Ox 98.4 F 26 H 135/95 H 95 02/17/20 11:38 02/17/20 15:14 02/17/20 09:31 02/17/20 15:14 Intake & Output 02/16/20 02/17/20 02/18/20 06:59 06:59 06:59 Weight 81.647 kg General appearance: PRESENT: no acute distress, cooperative Head exam: PRESENT: atraumatic, normocephalic Eye exam: PRESENT: EOMI, PERRLA Mouth exam: PRESENT: moist Neck exam: PRESENT: full ROM Respiratory exam: PRESENT: clear to auscultation rima, symmetrical, unlabored Cardiovascular exam: PRESENT: RRR, +S1, +S2 GI/Abdominal exam: PRESENT: normal bowel sounds, soft. ABSENT: rebound, tenderness Musculoskeletal exam: PRESENT: full ROM Neurological exam: PRESENT: alert, awake, oriented to person, oriented to place, oriented to time Psychiatric exam: PRESENT: agitated, anxious Focused psych exam: PRESENT: restlessness Results Laboratory Results: 02/17/20 02:00 02/17/20 02:00 02/17/20 02/17/20 02:00 02:00 WBC 4.2 RBC 3.69 L Hgb 13.8 Hct 38.6 MCV 105 H MCH 37.5 H MCHC 35.8 RDW 13.3 Plt Count 136 L Seg Neutrophils % 57.1 Sodium 139.1 Potassium 4.4 Chloride 104 Carbon Dioxide 29 Anion Gap 6 BUN 6 L Creatinine 0.67 Est GFR ( Amer) > 60 Glucose 86 Calcium 9.5 Total Bilirubin 0.9 AST 255 H Alkaline Phosphatase 92 Total Protein 6.5 Albumin 4.0 Impressions: Head CT 02/17/20 15:13 IMPRESSION: No evidence of acute intracranial process. Stable bilateral periventricular parenchymal calcifications as previously noted. EVIDENCE OF ACUTE STROKE: NO. Assessment and Plan - Diagnosis (1) Alcohol related seizure Is this a current diagnosis for this admission?: Yes Plan: -Recent onset of seizures related to decreased alcohol intake -No prior history of seizures related to alcohol -Is at high risk to develop delirium tremens - BAL 286>12 -CIWA score 12 currently - CIWA score q 4 h - ativan IV PRN for withdrawal based on CIWA score and seizure - IV fluids - banana bag - seizure precaution -Would keep the patient n.p.o. for now (2) Alcohol withdrawal Qualifiers: Complication of substance-induced condition: with unspecified complication Qualified Code(s): F10.239 - Alcohol dependence with withdrawal, unspecified Is this a current diagnosis for this admission?: Yes Plan: - came in due to alcohol related seizures - denies any prior intubation due to severe alcohol withdrawal - No prior DT -Started on IV fluids plus banana bag -CIWA AR scoring and IV Ativan to manage withdrawal symptoms -Clonidine 0.1 twice daily for high blood pressure (3) ETOH abuse Is this a current diagnosis for this admission?: Yes Plan: -Should be discharge to [facility] rehab once stable -Behavioral health following (4) Transaminitis Is this a current diagnosis for this admission?: Yes Plan: -AST 255, ALT 288 consistent with transaminases secondary to alcohol abuse -Continue to monitor for now - Time Time Spent with patient: 35 or more minutes Medications reviewed and adjusted accordingly: Yes Anticipated Discharge Disposition: Home, Self Care Anticipated Discharge Timeframe: TBD - Inpatient Certification Based on my medical assessment, after consideration of the patient's comorbi dities, presenting symptoms, or acuity I expect that the services needed warrant INPATIENT care.: Yes I certify that my determination is in accordance with my understanding of Medicare's requirements for reasonable and necessary INPATIENT services [42 CFR 412.3e].: Yes Medical Necessity: Risk of Complication if Not Cared For in Hospital Post Hospital Care: D/C Customer Service Correspondence Clerk Documentation
[2020-02-17] MEDS ORDERED: ONDANSETRON HCL INJ/PF 4 MG/2 ML SDV IV PRN (17:03)
[2020-02-17] MEDS: PANTOPRAZOLE SODIUM 40 MG TABLET.DR PO SCH (17:49)
[2020-02-17] MEDS: ENOXAPARIN SODIUM INJ 40 MG/0.4 ML DISP.SYRIN SUBCUT SCH (17:49)
[2020-02-17] MEDS: CLONIDINE HCL 0.1 MG TABLET PO SCH (17:49)
[2020-02-17] MEDS ORDERED: NORMAL SALINE 1000 ML 1,000 ML with POTASSIUM CHLORIDE 20 MEQ, MAGNESIUM SULFATE 8 MEQ,... IV SCH ×5 (22:00)
[2020-02-18 07:00] LABS: ABSOLUTE EOSINOPHILS # (AUTO) 0.1 10^3/uL (0.0-0.6); ABSOLUTE LYMPHOCYTES (AUTO) 1.4 10^3/uL (0.5-4.7); ABSOLUTE MONOCYTES (AUTO) 0.5 10^3/uL (0.1-1.4); ABSOLUTE NEUT (AUTO) 3.7 10^3/uL (1.7-8.2); BASOPHILS % (AUTO) 0.3 % (0-2); HEMOGLOBIN 14.1 g/dL (13.5-17.0); MEAN CORPUSCULAR HEMOGLOBIN 36.9 pg (27.0-33.4); MEAN CORPUSCULAR HGB CONC 34.4 g/dL (32.0-36.0); MEAN CORPUSCULAR VOLUME 107 fl (80-97); MONOCYTES % (AUTO) 9.5 % (3-13); PLATELET COUNT 128 10^3/uL (150-450); RED BLOOD COUNT 3.83 10^6/uL (4.35-5.55); RED CELL DISTRIBUTION WIDTH 12.9 % (11.5-14.0); SEGMENTED NEUTROPHILS % (AUTO) 65.2 % (42-78); TOTAL CELLS COUNTED % (AUTO) 100 %; WHITE BLOOD COUNT 5.6 10^3/uL (4.0-10.5)
[2020-02-18 07:30] LABS: ALKALINE PHOSPHATASE 91 U/L (38-126); ANION GAP 10 (5-19); ASPARTATE AMINO TRANSFERASE 155 U/L (17-59); BILIRUBIN,DIRECT 0.1 mg/dL (0.0-0.4); BILIRUBIN,TOTAL 1.7 mg/dL (0.2-1.3); BLOOD UREA NITROGEN 9 mg/dL (7-20); CALCIUM 9.5 mg/dL (8.4-10.2); CARBON DIOXIDE 23 mmol/L (22-30); CHLORIDE 99 mmol/L (98-107); GLUCOSE 74 mg/dL (75-110); POTASSIUM 4.2 mmol/L (3.6-5.0); TOTAL PROTEIN 6.4 g/dL (6.3-8.2)
[2020-02-18] MEDS ORDERED: INFLUENZA QUAD (6MOS+) 2020-21 VAC 0.5 ML SYR IM ONE (08:00)
[2020-02-18] MEDS: PANTOPRAZOLE SODIUM 40 MG TABLET.DR PO SCH ×2 (09:49→18:15)
[2020-02-18] MEDS: CLONIDINE HCL 0.1 MG TABLET PO SCH ×2 (09:49→18:15)
[2020-02-18] MEDS: ENOXAPARIN SODIUM INJ 40 MG/0.4 ML DISP.SYRIN SUBCUT SCH (09:49)
[2020-02-18 13:20] LABS: URINE CREATININE 71.3 mg/dL (24-392)
--- NOTE | 2020-02-18 14:05 | PDOC PROGRESS REPORT ---
Subjective Date:: 02/18/20 Subjective:: LUCIAN CARTWRIGHT is a 34 year old male, history of alcohol abuse who came into E D today due to seizure episodes. First episode of seizure occurred Saturday at his work and it was witnessed by his coworkers. According to the patient he started having muscle spasms, eye twitching, however he is unsure if he lost consciousness, but he denied having any bowel or bladder incontinence. Seizure lasted less than 5 minutes and this occurred when he had alcohol in his system. Second episode of seizure happened last Saturday in the car witnessed by his mom, with the same description, lasted less than 5 minutes. He was brought to [facility] emergency room on February 14 where he had oh another witnessed tonic-clonic seizure and was given 2 mg of Ativan. Patient was observed in the ED and was cleared for discharge to [facility]. When he got there he had another episode of seizure and had to be transferred back to the ED. He denied any previous episodes of seizure or previous hospitalization for alcohol withdrawal. He usually drinks a pint of rum a day and he has tried to cut back on the day he had a seizure. He denies any drug use. Behavioral health was consulted In the ED blood pressure was 122/84, heart rate 78, temperature 97.6, respiratory rate of 26, O2 sat 97% on room air. CBC was unremarkable as well as a CMP. Blood alcohol level was 286 on February 14 with a repeat of 52. U tox positive for benzos this likely reflects Ativan he was given for the tonic- clonic seizure. Hospitalist service was to evaluate the patient for possible admission. D2 Hospital stay 02/18/20. Patient was seen and examined at bedside. No further seizure episodes but he is still tremulous and anxious. CIWA score 14. He denied any chest pain, nausea/vomiting, hallucinations. Reason For Visit: ALCOHOL RELATED SEIZURE Physical Exam Vital Signs: Temp Pulse Resp BP Pulse Ox 98.5 F 69 14 124/82 97 02/18/20 08:51 02/18/20 07:34 02/18/20 07:34 02/18/20 07:34 02/18/20 07:34 Intake & Output 02/17/20 02/18/20 02/19/20 06:59 06:59 06:59 Weight 81.647 kg 66 kg General appearance: PRESENT: no acute distress, cooperative Head exam: PRESENT: atraumatic, normocephalic Eye exam: PRESENT: EOMI, PERRLA Mouth exam: PRESENT: moist Neck exam: PRESENT: full ROM Respiratory exam: PRESENT: clear to auscultation rima, symmetrical, unlabored Cardiovascular exam: PRESENT: RRR, +S1, +S2 Pulses: PRESENT: +2 pedal pulses bilateral GI/Abdominal exam: PRESENT: normal bowel sounds, soft. ABSENT: rebound, tenderness Extremities exam: PRESENT: full ROM Musculoskeletal exam: PRESENT: full ROM Neurological exam: PRESENT: alert, awake, oriented to person, oriented to place, oriented to time, oriented to situation, other - Patient still on active withdrawal state Psychiatric exam: PRESENT: anxious Skin exam: PRESENT: normal color Results Laboratory Results: 02/18/20 06:09 02/18/20 06:09 02/17/20 02/18/20 02/18/20 16:00 06:09 06:09 WBC 5.6 RBC 3.83 L Hgb 14.1 Hct 41.0 MCV 107 H MCH 36.9 H MCHC 34.4 RDW 12.9 Plt Count 128 L Seg Neutrophils % 65.2 Sodium 132.4 L Potassium 4.2 Chloride 99 Carbon Dioxide 23 Anion Gap 10 BUN 9 Creatinine 0.61 Est GFR ( Amer) > 60 Glucose 74 L Calcium 9.5 Total Bilirubin 1.7 H AST 155 H Alkaline Phosphatase 91 Total Protein 6.4 Albumin 4.0 Urine Osmolality 927 H Impressions: Head CT 02/17/20 15:13 IMPRESSION: No evidence of acute intracranial process. Stable bilateral periventricular parenchymal calcifications as previously noted. EVIDENCE OF ACUTE STROKE: NO. Assessment and Plan - Diagnosis (1) Alcohol related seizure Is this a current diagnosis for this admission?: Yes Plan: -x24 hrs seizure free - Recent onset of seizures related to decreased alcohol intake -No prior history of seizures related to alcohol -Is at high risk to develop delirium tremens - BAL 286>12 -CIWA score 12 currently - CIWA score q 4 h - continue ativan IV PRN for withdrawal based on CIWA score and seizure - continue IV fluids - banana bag - seizure precaution (2) Alcohol withdrawal Qualifiers: Complication of substance-induced condition: with unspecified complication Qualified Code(s): F10.239 - Alcohol dependence with withdrawal, unspecified Is this a current diagnosis for this admission?: Yes Plan: - came in due to alcohol related seizures - denies any prior intubation due to severe alcohol withdrawal - No prior DT -Started on IV fluids plus banana bag -CIWA AR scoring and IV Ativan to manage withdrawal symptoms -Clonidine 0.1 twice daily for high blood pressure (3) ETOH abuse Is this a current diagnosis for this admission?: Yes Plan: -Should be discharge to [facility] rehab once stable -Behavioral health following (4) Transaminitis Is this a current diagnosis for this admission?: Yes Plan: -AST 255, ALT 288 consistent with transaminases secondary to alcohol abuse -Continue to monitor for now - Time Time Spent with patient: 25-34 minutes Medications reviewed and adjusted accordingly: Yes Anticipated Discharge Disposition: [facility] Anticipated Discharge Timeframe: within 48 hours
[2020-02-18] MEDS: LORAZEPAM INJ 2 MG/1 ML VIAL IV PRN ×2 (15:38→23:55)
[2020-02-18 17:02] LABS: ALBUMIN 3.8 g/dL (3.5-5.0); ALKALINE PHOSPHATASE 92 U/L (38-126); ANION GAP 9 (5-19); ASPARTATE AMINO TRANSFERASE 140 U/L (17-59); BILIRUBIN,DIRECT 0.1 mg/dL (0.0-0.4); BILIRUBIN,TOTAL 1.4 mg/dL (0.2-1.3); BLOOD UREA NITROGEN 15 mg/dL (7-20); CALCIUM 9.6 mg/dL (8.4-10.2); CARBON DIOXIDE 23 mmol/L (22-30); CHLORIDE 100 mmol/L (98-107); GLUCOSE 152 mg/dL (75-110); POTASSIUM 4.2 mmol/L (3.6-5.0); TOTAL PROTEIN 6.3 g/dL (6.3-8.2)
[2020-02-18] MEDS: NICOTINE 14 MG/24 HR PATCH.TD24 TD SCH (18:15)
[2020-02-19] MEDS: LORAZEPAM INJ 2 MG/1 ML VIAL IV PRN ×3 (06:01→15:27)
[2020-02-19 06:36] LABS: ABSOLUTE EOSINOPHILS # (AUTO) 0.1 10^3/uL (0.0-0.6); ABSOLUTE LYMPHOCYTES (AUTO) 1.5 10^3/uL (0.5-4.7); ABSOLUTE MONOCYTES (AUTO) 0.6 10^3/uL (0.1-1.4); ABSOLUTE NEUT (AUTO) 3.8 10^3/uL (1.7-8.2); BASOPHILS % (AUTO) 0.2 % (0-2); EOSINOPHILS % (AUTO) 1.3 % (0-6); HEMATOCRIT 42.2 % (37.9-51.0); HEMOGLOBIN 14.7 g/dL (13.5-17.0); LYMPHOCYTES % (AUTO) 25.9 % (13-45); MEAN CORPUSCULAR HEMOGLOBIN 36.9 pg (27.0-33.4); MEAN CORPUSCULAR HGB CONC 34.9 g/dL (32.0-36.0); MEAN CORPUSCULAR VOLUME 106 fl (80-97); MONOCYTES % (AUTO) 9.5 % (3-13); PLATELET COUNT 126 10^3/uL (150-450); RED CELL DISTRIBUTION WIDTH 13.1 % (11.5-14.0); SEGMENTED NEUTROPHILS % (AUTO) 63.1 % (42-78); TOTAL CELLS COUNTED % (AUTO) 100 %
[2020-02-19 06:55] LABS: ALBUMIN 4.1 g/dL (3.5-5.0); ALKALINE PHOSPHATASE 88 U/L (38-126); ANION GAP 8 (5-19); ASPARTATE AMINO TRANSFERASE 170 U/L (17-59); BILIRUBIN,DIRECT 0.2 mg/dL (0.0-0.4); BILIRUBIN,TOTAL 1.5 mg/dL (0.2-1.3); BLOOD UREA NITROGEN 10 mg/dL (7-20); CALCIUM 9.9 mg/dL (8.4-10.2); CARBON DIOXIDE 24 mmol/L (22-30); CHLORIDE 102 mmol/L (98-107); GLUCOSE 111 mg/dL (75-110); POTASSIUM 4.2 mmol/L (3.6-5.0); TOTAL PROTEIN 6.6 g/dL (6.3-8.2)
[2020-02-19] MEDS: CLONIDINE HCL 0.1 MG TABLET PO SCH (09:22)
[2020-02-19] MEDS: PANTOPRAZOLE SODIUM 40 MG TABLET.DR PO SCH (09:25)
[2020-02-19] MEDS: NICOTINE 14 MG/24 HR PATCH.TD24 TD SCH (09:25)
[2020-02-19] MEDS: ENOXAPARIN SODIUM INJ 40 MG/0.4 ML DISP.SYRIN SUBCUT SCH (09:26)
[2020-02-19] MEDS ORDERED: NICOTINE 14 MG/24 HR PATCH.TD24 TD SCH (10:00)
[2020-02-19 12:07] VITALS: BP 120/81
--- NOTE | 2020-02-19 17:03 | Left Against Medical Advice ---
Against Medical Advice Admission Date/Time: 02/17/20 15:35 Primary Care Provider: Date of Patient Emigration: 02/19/20 - Diagnosis: (1) Alcohol related seizure Is this a current diagnosis for this admission?: Yes (2) Alcohol withdrawal Is this a current diagnosis for this admission?: Yes (3) ETOH abuse Is this a current diagnosis for this admission?: Yes (4) Transaminitis Is this a current diagnosis for this admission?: Yes - Summary: Summary: Please see Admission and Progress Notes as well.Risks was explained to the patient and he understands and accepts the risk LUCIAN CARTWRIGHT is a 34 M, who LEFT AGAINST MEDICAL ADVICE. The Patient was admitted on 02/17/20 15:35.
[2020-02-20 07:37] LABS: HEPATITS B SURFACE ANTIGEN Negative (Negative)
[2020-02-20 12:41] LABS: HEPATITIS C VIRUS ANTIBODY <0.1 s/co ratio (0.0-0.9)
== END 2020-02-19 16:54 | disposition left against medical advice (07) | DRG 101 ==
LOC: ER 21:31 → EH 02-17 15:35 → 4S 02-17 17:29
PROVIDERS: ADMIT Internal Medicine; ATTEND Internal Medicine
DX: G40.89 Other seizures (principal); F10.288 Alcohol dependence with other alcohol-induced disorder; F10.239 Alcohol dependence with withdrawal, unspecified; F41.9 Anxiety disorder, unspecified; R74.01 Elevation of levels of liver transaminase levels; F32.9 Major depressive disorder, single episode, unspecified; L72.9 Follicular cyst of the skin and subcutaneous tissue, unspecified; G25.2 Other specified forms of tremor; I10 Essential (primary) hypertension; Z53.29 Procedure and treatment not carried out because of patient's decision for other reasons; Z23 Encounter for immunization
CPT/HCPCS: 36415; 70450; 80053; 80074; 80307; 82570; 83935; 84300; 85025; 86701; 87070; 93005; 93010; 96374; 99285; J1650; J2060; J2250; J2405; J2550; J2765; J3411; J3475; J3480; J3490; J7030

== ENCOUNTER 2020-03-15 16:37 | Emergency (ER) | payer SELFPAY ==
[2020-03-15] MEDS ORDERED: LORAZEPAM INJ 2 MG/1 ML VIAL IV ONE ×2 (16:54→17:07)
[2020-03-15] MEDS ORDERED: NORMAL SALINE 1000 ML 1,000 ML with POTASSIUM CHLORIDE 20 MEQ, MAGNESIUM SULFATE 8 MEQ,... IV ONE ×5 (16:56)
[2020-03-15] MEDS ORDERED: THIAMINE HCL 100 MG, FOLIC ACID 1 MG in NORMAL SALINE 250 ML IV SCH (17:00)
--- NOTE | 2020-03-15 17:03 | ER Document Report ---
ED Medical Screen (RME) - General Chief Complaint: Seizure Stated Complaint: POSSIBLE SEIZURE,COUGH Time Seen by Provider: 03/15/20 16:43 TRAVEL OUTSIDE OF THE [place] IN LAST 30 DAYS: No - HPI Notes: 03/15/20 16:59 34-year-old male presents to the emergency room today with his mother for evaluation of a witnessed seizure in the car on the way here after he told his mother he did have a tonic-clonic seizure earlier today. Patient is an alcoholic and admits to drinking a pint of spiced rum a day. reports he drink about only 4 shots of rum today. Patient was seen in the emergency room and admitted to the hospital service for seizures on 02/16/2020, patient left AMA approximately 3 days later. Prior to his last hospital stay, patient did not have a history of seizures. Patient states he has been trying to detox as well from alcohol and he has had an increase amount of seizures. Patient is not on antiseizure medications not followed up with a neurologist due to not having insurance or having money. Mother states that seizure lasted approximately about a minute, was postictal thereafter. No bowel or bladder incontinences. No other drug use. I have greeted and performed a rapid initial assessment of this patient. A comprehensive ED assessment and evaluation of the patient, analysis of test results and completion of the medical decision making process will be conducted by additional ED providers. PHYSICAL EXAMINATION: GENERAL: Acutely ill, well-nourished and in no acute distress. HEAD: Atraumatic, normocephalic. EYES: Pupils equal round extraocular movements intact, conjunctiva are normal. NECK: Normal range of motion CV: s1, s2 regular LUNGS: No respiratory distress NEUROLOGICAL: normal speech SKIN: Warm, Dry, normal turgor, no rashes or lesions noted. The patient was evaluated during a global COVID-19 pandemic and that diagnosis was suspected/considered upon their initial presentation. Their evaluation, treatment and testing was consistent with current guidelines for patients who present with complaints or symptoms and may be related to COVID-19. At 1654-patient had tonic-clonic seizure in wheelchair. 1 mg of Ativan ordered. charge nurse made aware as well as Dr. Mejia, Dr. Bah, ER supervising physicians. Dr. Bah at bedside to see patient 03/15/20 17:03 - Related Data Allergies/Adverse Reactions: No Known Allergies Allergy (Verified 03/15/20 16:39) Past Medical History - Past Medical History Cardiac Medical History: Reports: Hx Hypertension Pulmonary Medical History: Denies: Hx Intubation, Hx Respiratory Failure Neurological Medical History: Reports: Hx Migraine Psychiatric Medical History: Reports: Hx Anxiety, Hx Depression Past Surgical History: Reports: Hx Oral Surgery, Hx Orthopedic Surgery, Hx Tonsillectomy - Immunizations Hx Diphtheria, Pertussis, Tetanus Vaccination: Yes Physical Exam - Vital signs Vitals: Temp 98.4 F 03/15/20 16:39 Course - Vital Signs Vital signs: Temp Pulse Resp BP Pulse Ox 98.4 F 03/15/20 16:39
[2020-03-15] MEDS ORDERED: LEVETIRACETAM 1500 MG/NACL-ISO 1,500 MG/100 ML RTUPB IV ONE (17:08)
[2020-03-15 17:50] LABS: ABSOLUTE LYMPHOCYTES (AUTO) 1.9 10^3/uL (0.5-4.7); ABSOLUTE MONOCYTES (AUTO) 0.5 10^3/uL (0.1-1.4); ABSOLUTE NEUT (AUTO) 2.4 10^3/uL (1.7-8.2); BASOPHILS % (AUTO) 0.4 % (0-2); EOSINOPHILS % (AUTO) 0.9 % (0-6); HEMATOCRIT 41.7 % (37.9-51.0); HEMOGLOBIN 14.7 g/dL (13.5-17.0); LYMPHOCYTES % (AUTO) 38.7 % (13-45); MEAN CORPUSCULAR HGB CONC 35.3 g/dL (32.0-36.0); MEAN CORPUSCULAR VOLUME 105 fl (80-97); MONOCYTES % (AUTO) 10.7 % (3-13); PLATELET COUNT 177 10^3/uL (150-450); RED BLOOD COUNT 3.99 10^6/uL (4.35-5.55); SEGMENTED NEUTROPHILS % (AUTO) 49.3 % (42-78); TOTAL CELLS COUNTED % (AUTO) 100 %
--- NOTE | 2020-03-15 17:57 | ER Document Report ---
Entered by TISHA CROWELL SCRIBE 03/15/20 1721 Acting as scribe for:YAMILET MICHAELS DO ED General - General Chief Complaint: Seizure Stated Complaint: POSSIBLE SEIZURE,COUGH Time Seen by Provider: 03/15/20 16:43 Mode of Arrival: Ambulatory Information source: Patient Notes: This 34-year-old male patient presents to the emergency department today with complaints of possible seizure. Patient has a long history of alcohol abuse with cirrhosis. He stopped drinking last weekend and then began again over the last few days. Today he called his mother to ask for help with his drinking. Mom reports that he has been giving away some of his belongings telling people that he won't need them anymore and she is concerned that he is suicidal. He apparently tried to jump out of the car on the way here. After arrival here he had a generalized seizure that lasted approximately 60 seconds. TRAVEL OUTSIDE OF THE [place] IN LAST 30 DAYS: No - Related Data Allergies/Adverse Reactions: No Known Allergies Allergy (Verified 03/15/20 16:39) Past Medical History - General Information source: Patient - Social History Smoking Status: Unknown if Ever Smoked Cigarette use (# per day): No Frequency of alcohol use: None Drug Abuse: None Lives with: Family Family History: Arthritis, CAD, CVA, DM, Hyperlipidemia, Hypertension, Malignancy Patient has homicidal ideation: No - Past Medical History Cardiac Medical History: Reports: Hx Hypertension Neurological Medical History: Reports: Hx Migraine Psychiatric Medical History: Reports: Hx Anxiety, Hx Depression Past Surgical History: Reports: Hx Oral Surgery, Hx Orthopedic Surgery, Hx Tonsillectomy - Immunizations Hx Diphtheria, Pertussis, Tetanus Vaccination: Yes Review of Systems - Review of Systems Constitutional: No symptoms reported EENT: No symptoms reported Cardiovascular: No symptoms reported Respiratory: No symptoms reported Gastrointestinal: No symptoms reported Genitourinary: No symptoms reported Male Genitourinary: No symptoms reported Musculoskeletal: No symptoms reported Skin: No symptoms reported Hematologic/Lymphatic: No symptoms reported Neurological/Psychological: See HPI, Seizure, Suicidal ideation -: Yes All other systems reviewed and negative Physical Exam - Vital signs Vitals: Temp 98.4 F 03/15/20 16:39 - Notes Notes: Physical Exam: General: Alert. Witnessed generalized seizure. HEENT: Normocephalic. Atraumatic. PERRL. Extraocular movements intact. Oropharynx clear. Neck: Supple. Non-tender. Respiratory: No respiratory distress. Clear and equal breath sounds bilaterally. Cardiovascular: Regular rate and rhythm. Abdominal: Left lower quadrant and left mid abdomen tenderness to palpation. Voluntary guarding. No distension. Normal Bowel Sounds. Back: No gross abnormalities. Extremities: Moves all four extremities. Upper extremities: Normal inspection. Normal ROM. Lower extremities: Normal inspection. No edema. Normal ROM. Neurological: Normal cognition. AAOx4. Normal speech. Psychological: Normal affect. Normal Mood. Skin: Warm. Dry. Normal color. Course - Re-evaluation Re-evalutation: 03/15/20 22:38 MDM 34 year old with etoh abuse and recent depression - giving away personal affects because "I won't need them" and tried to jump from car with mom on way here. He has no other health problems than those related to his etoh use. He is cooperative here and had one brief apparent generalized seizure here that lasted less than 1 minutes. Administered ativan and loaded with keppra. During the several hours he has been here he has sat up, eaten, conversed and has no medical complaints. Awaiting formal psychaitric evaluation 03/16 when his etoh level is lower. - Vital Signs Vital signs: Temp Pulse Resp BP Pulse Ox 98.6 F 24 H 115/88 H 93 03/15/20 22:01 03/15/20 21:01 03/15/20 22:01 03/15/20 21:01 - Laboratory Results Result Diagrams: 03/15/20 17:18 03/15/20 17:18 Laboratory Results Interpreted: 03/15/20 03/15/20 17:18 17:18 RBC 3.99 L MCV 105 H MCH 37.0 H BUN 5 L AST 488 H ALT 409 H Serum Alcohol 367 H* Critical Laboratory Results Reviewed: No Critical Results - Radiology Results Critical Radiology Results Reviewed: No Critical Results - EKG Interpretation by Me EKG shows normal: Sinus rhythm Rate: Normal Rhythm: NSR - NSR NL [place] [address] elevation or depression myinterpretation. Discharge - Discharge Clinical Impression: Seizure disorder Acute alcohol intoxication Qualifiers: Complication of substance-induced condition: uncomplicated Qualified Code(s): F10.920 - Alcohol use, unspecified with intoxication, uncomplicated Depression Qualifiers: Depression Type: other depression Qualified Code(s): F32.89 - Other specified depressive episodes Condition: Stable Disposition: PSYCH HOSP/UNIT I personally performed the services described in the documentation, reviewed and edited the documentation which was dictated to the scribe in my presence, and it accurately records my words and actions.
[2020-03-15 18:02] LABS: ALBUMIN 4.3 g/dL (3.5-5.0); ALKALINE PHOSPHATASE 121 U/L (38-126); ANION GAP 11 (5-19); ASPARTATE AMINO TRANSFERASE 488 U/L (17-59); BILIRUBIN,DIRECT 0.2 mg/dL (0.0-0.4); BILIRUBIN,TOTAL 0.6 mg/dL (0.2-1.3); BLOOD UREA NITROGEN 5 mg/dL (7-20); CALCIUM 9.2 mg/dL (8.4-10.2); CARBON DIOXIDE 27 mmol/L (22-30); CHLORIDE 104 mmol/L (98-107); CREATINE KINASE 58 U/L (55-170); GLUCOSE 99 mg/dL (75-110); POTASSIUM 3.9 mmol/L (3.6-5.0); TOTAL PROTEIN 7.2 g/dL (6.3-8.2)
[2020-03-15 18:14] LABS: ALCOHOL 367 mg/dL (NONE DETECTED)
--- NOTE | 2020-03-15 18:51 | RADIOLOGY REPORT (SQ) ---
EXAM DESCRIPTION: CHEST SINGLE VIEW IMAGES COMPLETED DATE/TIME: 03/15/2020 6:13 pm REASON FOR STUDY: seizure COMPARISON: 02/15/2020 EXAM PARAMETERS: NUMBER OF VIEWS: One view. TECHNIQUE: Single frontal radiographic view of the chest acquired. RADIATION DOSE: NA LIMITATIONS: None. FINDINGS: LUNGS AND PLEURA: No opacities, masses or pneumothorax. No pleural effusion. MEDIASTINUM AND HILAR STRUCTURES: No masses. Contour normal. HEART AND VASCULAR STRUCTURES: Heart normal in size. Normal vasculature. BONES: No acute findings. HARDWARE: None in the chest. OTHER: No other significant finding. IMPRESSION: NO ACUTE RADIOGRAPHIC FINDING IN THE CHEST. TECHNICAL DOCUMENTATION: JOB ID: [id number] 2010 [employer]- All Rights Reserved Reading location - IP/workstation name: [email or web address]
--- NOTE | 2020-03-15 21:13 | EKG REPORT ---
SEVERITY:- NORMAL ECG - SINUS RHYTHM : Confirmed by: Inder Powell MD 15-Mar-2020 21:12:35
--- NOTE | 2020-03-15 22:51 | PSYCHOLOGICAL NOTE ---
Psych Note - Psych Note Date seen by psych provider: 03/15/20 Time seen by psych provider: 20:10 Psych Note: 1900 Patient is currently intoxicated with alcohol level 367 Unable to complete full evaluation due to level of intoxication. Patient is currently under 24 hour petition for concerns of depression and SI due to patient giving away personal belongings. He will be evaluated in the morning. Impression/ Plan: Patient is recommended for continued overnight mental health observation. He will be evaluated tomorrow, when sober. Dr. Bhatia was consulted to care management of this patient; attending physicians in agreement with recommendations and disposition.
[2020-03-16 00:30] LABS: APPEARANCE,URINE CLEAR; BILIRUBIN,URINE NEGATIVE (NEGATIVE); COLOR,URINE AMBER; GLUCOSE, URINE NEGATIVE (NEGATIVE); KETONES,URINE NEGATIVE (NEGATIVE); LEUKOCYTE ESTERASE,URINE NEGATIVE (NEGATIVE); NITRITE,URINE NEGATIVE (NEGATIVE); PROTEIN,URINE NEGATIVE (NEGATIVE); URINE SPECIFIC GRAVITY 1.024
[2020-03-16 00:45] LABS: URINE AMPHETAMINES SCREEN NEGATIVE; URINE BARBITURATES SCREEN NEGATIVE; URINE BENZODIAZEPINES SCREEN NEGATIVE; URINE COCAINE SCREEN NEGATIVE; URINE MARIJUANA (THC) SCREEN NEGATIVE; URINE METHADONE SCREEN NEGATIVE; URINE PHENCYCLIDINE SCREEN NEGATIVE
[2020-03-16] MEDS ORDERED: LORAZEPAM INJ 2 MG/1 ML VIAL IM ONE (03:58)
[2020-03-16] MEDS: CIPROFLOXACIN HCL/DEXAMETH OTIC DROP 7.5 ML AS SCH ×3 (04:11→18:43)
[2020-03-16 05:54] VITALS: BP 142/91
[2020-03-16] MEDS ORDERED: NICOTINE 21 MG/24 HR PATCH.TD24 TD ONE (08:27)
[2020-03-16] MEDS: LEVETIRACETAM 500 MG TABLET PO SCH ×2 (10:00→18:43)
[2020-03-16] MEDS ORDERED: LORAZEPAM 1 MG TABLET PO ONE (11:21)
[2020-03-16] MEDS ORDERED: LIDOCAINE 1%/EPINEPHRINE INJ 20 ML VIAL INJ ONE (11:21)
[2020-03-16] MEDS ORDERED: SULFAMETHOXAZOLE/TRIMETHOPRIM 800-160 MG TABLET PO ONE (11:24)
--- NOTE | 2020-03-16 11:24 | ER Document Report ---
Doctor's Note Notes: 03/16/20 11:22 I reviewed the patient's chart. I went to evaluate the patient. He is answering questions appropriately. States he does not feel well. He does have some tremulousness of the hands bilaterally. Last drink was yesterday. States he drinks 1/5 of liquor a day. Nursing had concerns about a lesion on the left posterior neck. I evaluated this he has a large infected sebaceous cyst. States he has had a swollen area there for over 20 years. Does not know when it became red but is becoming more painful recently. There is overlying erythema. I discussed this with the patient at length he would like the area drained and incised. Will start patient on a course of antibiotics as well for this. He has been evaluated by the psychiatric team awaiting them to come speak with me about their evaluation regarding plan for care
--- NOTE | 2020-03-16 15:35 | PSYCHOLOGICAL NOTE ---
Psych Note - Psych Note Date seen by psych provider: 03/16/20 Time seen by psych provider: 10:58 Psych Note: Reason for Consult: suicidal ideation; alcohol use and intoxication Consent permissions: Tequila shine, [phone] Patient is a 34 year old male who was admitted to the ED via POV for alcohol intoxication and suicidal ideation. Patient denies suicidal ideation, plan, and intent. Reportedly, patient was giving away personal belongings, however patient reports giving away a silver dollar and some change to his niece, age 21, because she needs money. He states he was giving away little things here and there, but was primarily the coins. He reports his niece is semi autistic. Patient reports history of Bipolar disorder, anxiety, and depression. He used to go to [facility] for medication management, but has not been on psychiatric medication in a few years. Patient reports alcoholism and states he has been drinking heavily for almost 20 years. He reports typically drinking about a fifth of rum a day. Patients longest period of sobriety was when he went to a detox center in [place] when he was 25 year old. At this time he was sober for almost a year. Patient reports history of inpatient hospitalization at age 20. At this time, he was intoxicated and attempted suicide by jumping off a bridge. He reports he last went to [facility] for detox, a few weeks ago, however left via EMS due to having a seizure. Patient is currently unemployed. He was working at [employer] as a cook. He lost his job about 1.5 months ago because he had a seizure at work and it was unsafe to have him on the line cooking if he was at risk for seizures. Collateral: Called motherTequila, at [phone] Mother reports, He has got some stuff he has had for years and year and year. He has always kept them and I know he cherishes them. He was giving stuff to his niece. He has a dog he has had for 15 years and they are inseparable. He asked me if he would take care of him for him. I said you mean when you are in the hospital and he said, please just take care of him for me. Mother reports patient gave his niece his silver dollar that he has had for several years. She is not sure what else he gave her. Mother notes that she is special needs; she is 21, but has a mental age or about 6 or 7. Mother reports patient cares deeply for her. He is basically a dad to her as she doesnt know her dad. Mother reports patient lives alone, but if she is not around, he will do what he can to take care of her. She reports patient is very connected to her, loves her like his own. She reports history of anxiety and depression, but was uncertain about a bipolar diagnosis. She reports family history of mental health: brother- Schizophrenia; sister- undiagnosed, suicide attempts; niece- Bipolar, ASD; mother- MDD. Mother confirms patient lost work due to seizures; started drinking more in the past month and a half. She reports he has made no efforts to get unemployment, food stamps, or disability. She states he owns his own trailer, but it is falling apart. His lot rent is due in March, but he is going to be towed due to not being able to pay his lot rent. Mother reports patient is depressed about that and depressed because he cant work. Patient has always been able to hold a job, he is good at what he does. She reports even if he sells his trailer, he will be sylvester to get $1,500. [place] patient is not welcome. She states about 15-20 years ago patient was arrested after given permission to use someones REINIER card, but then getting charges pressed against him. 1750 called patient's mother to inform her of transportation to [place] at 1930; no answer at time and voicemail left with no name of patient and to call back with questions Patient was alert and oriented to self, person, place, time and situation. Mood was sad with flat affect. He denies current suicidal and homicidal ideations, plan, and intent. Patient did not appear to be responding to internal stimuli as evidenced by fair eye contact and answering questions appropriately when addressed. Thought processes are linear and organized. Conversational speech was within normal limits for rate, tone and prosody. Intellectual abilities are estimated to be average. Insight, judgment and impulse control were poor as evidenced by giving away personal belongings and attempting to jump out of a car on the way to the ED. Patient engages appropriately. Clinical Presentation: suicidal ideations and alcoholism IVC Criteria per [place] GS 122C Dangerous to others Within the relevant past the individual No has inflicted or attempted to inflict or threatened to inflict serious bodily harm on another AND No that there is a reasonable probability that this conduct will be repeated. OR No has acted in such a way as to create a substantial risk of serious bodily harm to another AND No that there is a reasonable probability that this conduct will be repeated. OR No has engaged in extreme destruction of property AND NO that there is a reasonable probability that this conduct will be repeated. Previous episodes of dangerousness to others, when applicable, may be considered when determining reasonable probability of future dangerous conduct. Clear, cogent, and convincing evidence that an individual has committed a homicide in the relevant past is prima facie evidence of dangerousness to others. Dangerous to self Within the relevant past the individual has done any of the following: acted in such a way as to show ALL of the following: No The individual would be unable without care, supervision, and the continued assistance of others not otherwise available, to exercise self- control, judgment, and discretion in the conduct of the individual's daily responsibilities and social relations or to satisfy the individual's need for nourishment, personal or medical care, usp, or self-protection and safety. AND No There is a reasonable probability of the individual suffering serious physical debilitation within the near future unless adequate treatment is given. A showing of behavior that is grossly irrational, of actions that the individual is unable to control, of behavior that is grossly inappropriate to the situation, or of other evidence of severely impaired insight and judgment shall create a prima facie inference that the individual is unable to care for himself or herself. OR Yes has attempted suicide or threatened suicide While patient is currently denying suicidal ideations, he has started to give away personal belongings that have meaning to him and asked family to take care of his dog of 15 years without explanation; has lost job and made no efforts to secure unemployment, food stamps, or attempt to save his home (as his trailer will be towed in March if he does not pay rent). AND Yes that there is a reasonable probability of suicide unless adequate treatment is given Patient has multiple stressors in his life; he is not displaying future forward goal oriented thinking as when asked about not attempting to get unemployment or disability, he states he just hasnt; does not report plans to do so; patient has no income and will be getting his trailer towed next month; has secured his mother to take care of his dog; he has a history of depression and anxiety and has not been on psychiatric medications in several years OR No has mutilated himself or herself or attempted to mutilate himself or herself AND No that there is a reasonable probability of serious self-mutilation unless adequate treatment is given. NOTE: Previous episodes of dangerousness to self, when applicable, may be considered when determining reasonable probability of physical debilitation, suicide, or self-mutilation. Impression\plan: Patient is recommended for full IVC. His referral packet has been sent to [facility] for possibly IVC placement for alcohol abuse and suicidal ideations. Patient came to the ED with his mother after suspected suicidal ideations. On the way to the ED, mother reports he attempted to jump out of the car. Patient denies suicidal ideations, plan, and intent, however cannot explain why he gave away personal belongings and asked for his mother to care for his dog. There are concerns for his safety due to lack of future forward goal oriented thinking. Patient lost his job about 1.5 months ago and has made no efforts to secure unemployment, disability, or food stamps. He does not report plans to do so. He has no income and is at risk for his trailer to be towed next month and without money, is going to happen. Patient has a history of alcoholism and there are concerns for safety and impulse control while under the influence of alcohol and he reports drinking about a fifth of rum a day. Patient can benefit from inpatient treatment for possible medication stabilization and detox. He has been given community resource sheet for outpatient providers in the area to include mobile crisis for [facility] and [facility]. He was also given a resource sheet, obtained by discharge planning, for community resources related to medical assistance and possible financial assistance. Dr. Bhatia was consulted to care management of this patient; attending physicians in agreement with recommendations and disposition.
[2020-03-16] MEDS ORDERED: ACETAMINOPHEN 325 MG TABLET ONE (20:15)
[2020-03-16] MEDS ORDERED: ACETAMINOPHEN 325 MG TABLET PO ONE (20:28)
== END 2020-03-16 20:43 ==
LOC: ER 16:37
DX: R56.9 Unspecified convulsions (principal); L72.3 Sebaceous cyst; L08.89 Other specified local infections of the skin and subcutaneous tissue; F10.920 Alcohol use, unspecified with intoxication, uncomplicated; Y90.8 Blood alcohol level of 240 mg/100 ml or more; F32.89 Other specified depressive episodes; R05 Cough; I10 Essential (primary) hypertension; R45.851 Suicidal ideations
CPT/HCPCS: 93005; 96376; 99285; 96372; 96361 ×2; 96375; 96365; 36415; 80307 ×2; 82550; 85025; 80053; 81001; 84484; 71045; 93010; 10060; J3490 ×3; J3475; J2060 ×2; J3480; J3411; J7030; J1953

== ENCOUNTER 2020-04-06 16:21 | Emergency (ER) | payer SELFPAY ==
[2020-04-06] MEDS ORDERED: NORMAL SALINE 1000 ML 1,000 ML IV PRN (16:57)
[2020-04-06] MEDS ORDERED: THIAMINE HCL 100 MG, FOLIC ACID 1 MG in NORMAL SALINE 250 ML IV ONE (16:57)
[2020-04-06] MEDS ORDERED: LORAZEPAM INJ 2 MG/1 ML VIAL IV ONE ×2 (16:57→18:48)
[2020-04-06 17:12] LABS: ABSOLUTE LYMPHOCYTES (AUTO) 2.5 10^3/uL (0.5-4.7); ABSOLUTE MONOCYTES (AUTO) 0.6 10^3/uL (0.1-1.4); ABSOLUTE NEUT (AUTO) 2.3 10^3/uL (1.7-8.2); BASOPHILS % (AUTO) 0.3 % (0-2); EOSINOPHILS % (AUTO) 0.6 % (0-6); HEMATOCRIT 44.4 % (37.9-51.0); HEMOGLOBIN 15.9 g/dL (13.5-17.0); LYMPHOCYTES % (AUTO) 45.9 % (13-45); MEAN CORPUSCULAR HEMOGLOBIN 36.4 pg (27.0-33.4); MEAN CORPUSCULAR HGB CONC 35.7 g/dL (32.0-36.0); MEAN CORPUSCULAR VOLUME 102 fl (80-97); MONOCYTES % (AUTO) 11.6 % (3-13); PLATELET COUNT 197 10^3/uL (150-450); RED BLOOD COUNT 4.36 10^6/uL (4.35-5.55); RED CELL DISTRIBUTION WIDTH 13.2 % (11.5-14.0); SEGMENTED NEUTROPHILS % (AUTO) 41.6 % (42-78); TOTAL CELLS COUNTED % (AUTO) 100 %; WHITE BLOOD COUNT 5.5 10^3/uL (4.0-10.5)
[2020-04-06 17:21] LABS: ALBUMIN 4.6 g/dL (3.5-5.0); ALKALINE PHOSPHATASE 122 U/L (38-126); ANION GAP 14 (5-19); ASPARTATE AMINO TRANSFERASE 184 U/L (17-59); BILIRUBIN,DIRECT 0.3 mg/dL (0.0-0.4); BILIRUBIN,TOTAL 0.7 mg/dL (0.2-1.3); BLOOD UREA NITROGEN 4 mg/dL (7-20); CALCIUM 10.1 mg/dL (8.4-10.2); CARBON DIOXIDE 28 mmol/L (22-30); CHLORIDE 100 mmol/L (98-107); CREATINE KINASE 83 U/L (55-170); GLUCOSE 117 mg/dL (75-110); POTASSIUM 4.1 mmol/L (3.6-5.0); TOTAL PROTEIN 7.5 g/dL (6.3-8.2)
--- NOTE | 2020-04-06 17:30 | RADIOLOGY REPORT (SQ) ---
EXAM DESCRIPTION: CHEST SINGLE VIEW IMAGES COMPLETED DATE/TIME: 04/06/2020 2:20 pm REASON FOR STUDY: cough COMPARISON: None. EXAM PARAMETERS: NUMBER OF VIEWS: One view. TECHNIQUE: Single frontal radiographic view of the chest acquired. RADIATION DOSE: NA LIMITATIONS: None. FINDINGS: LUNGS AND PLEURA: No opacities, masses or pneumothorax. No pleural effusion. MEDIASTINUM AND HILAR STRUCTURES: No masses. Contour normal. HEART AND VASCULAR STRUCTURES: Heart normal in size. Normal vasculature. BONES: No acute findings. HARDWARE: None in the chest. OTHER: No other significant finding. IMPRESSION: NO ACUTE RADIOGRAPHIC FINDING IN THE CHEST. TECHNICAL DOCUMENTATION: JOB ID: [id number] 2010 [employer]- All Rights Reserved Reading location - IP/workstation name: [email or web address]
[2020-04-06 17:37] LABS: ALCOHOL 383 mg/dL (NONE DETECTED)
--- NOTE | 2020-04-06 18:12 | ER Document Report ---
ED Substance Abuse / Acc. OD - General Chief Complaint: Alcohol Withdrawl Stated Complaint: LEFT SIDE BODY PAIN Time Seen by Provider: 04/06/20 16:57 Mode of Arrival: Ambulatory Information source: Patient Notes: MY NOTES on 17 Feb 2020 Chief Complaint: Probable Seizure Stated Complaint: LEFT ARM PAIN,SPEECH SLURRED Time Seen by Provider: 02/15/20 16:04 Primary Care Provider: [facility] [Outside] - Follow up as needed Chief complaint: Possible seizure History of present illness: 34-year-old male brought in by his mother with whom he lives for altered mental status shakiness. He is a heavy drinker and says he has "recently cut back" to a pint a day. He has been to detox multiple times. While he was in the triage area he had an apparent brief grand mal seizure. Patient complains of cramping of muscles and nausea. Says he is vomited twice today. He denies any hematemesis. Currently denies hallucinations. Reports he has been to detox 5 times previously. Currently employed as a cook. 04/06/20 16:48 - ED Nursing Note by HORTENCIA JIMENEZ Acct Num: [id number] : 1985 Patient Age: 34 Pt. arrived POV, being brought in by his Mom, C/O of general weakness. Pt. has a HX of ETOH abuse and seizure during withdrawal. Pt. is A & O X3, he is able to answer questions at this time, breathing is even and unlabored, NAD at this time. MY NOTES today 06 Apr 2020 Per patient and mother; mother is main historian because patient is very anxious and moving his arms about striking his left eye stating he has left eye pain for many weeks. He has injected bilateral eyes but smells heavily of alcohol. He says he drinks rum on a regular basis heavy amounts including drinking today. He usually drinks at least a quart per day. Patient has been to [place] over . Patient denies any dysuria but does admit to some mild diarrhea and gastritis. Patient has no dermatitis but does exhibit some beriberi findings. His mother reports he has been smoking cigarettes and drinking alcohol since a teenager. Mother's name is Ida and she advises they moved to [place] from [place] in 1997. When he was a teenager he began smoking and drinking 1/5 of rum per day. Patient has not stopped. No one in the family drink. He was the youngest of 3 children having a older brother and older sister. Mother reports he hung around with other friends who were heavy drinkers as well. Both patient and mother Ida report he takes propranolol trazodone and gabapentin on a daily basis but is almost out of these. Lesia spoke with mother and patient and mother reports she takes care of her special needs child at home and spouse. They are calling friends to see if patient can stay at their house. TRAVEL OUTSIDE OF THE [place] IN LAST 30 DAYS: No - Related Data Allergies/Adverse Reactions: No Known Allergies Allergy (Verified 03/15/20 16:39) Home Medications: Pt. unable to recal at this time Past Medical History - Social History Smoking Status: Current Every Day Smoker Cigarette use (# per day): Yes Chew tobacco use (# tins/day): No Smoking Education Provided: Yes Frequency of alcohol use: Heavy Drug Abuse: None Lives with: Family Family History: Arthritis, CAD, CVA, DM, Hyperlipidemia, Hypertension, Malignancy Patient has suicidal ideation: No Patient has homicidal ideation: No - Past Medical History Cardiac Medical History: Reports: Hx Hypertension Pulmonary Medical History: Denies: Hx Intubation, Hx Respiratory Failure Neurological Medical History: Reports: Hx Migraine Psychiatric Medical History: Reports: Hx Anxiety, Hx Depression Past Surgical History: Reports: Hx Oral Surgery, Hx Orthopedic Surgery, Hx Tonsillectomy - Immunizations Hx Diphtheria, Pertussis, Tetanus Vaccination: Yes Review of Systems - Review of Systems Constitutional: See HPI, Malaise, Weakness EENT: See HPI, Eye pain Cardiovascular: No symptoms reported Respiratory: No symptoms reported Gastrointestinal: No symptoms reported Genitourinary: No symptoms reported Male Genitourinary: No symptoms reported Musculoskeletal: No symptoms reported Skin: No symptoms reported Hematologic/Lymphatic: No symptoms reported Neurological/Psychological: See HPI, Weakness -: Yes All other systems reviewed and negative Physical Exam - Vital signs Vitals: Temp 98.1 F 04/06/20 16:21 Interpretation: Normal - General General appearance: Appears well, Alert - HEENT Head: Normocephalic, Atraumatic Eyes: Normal, Other - Injected left eye greater than right eye. Patient has been punching his left eye intentionally saying this is a irritated eye for several weeks. Conjunctiva: Injected Cornea: Corneal abrasion Extraocular movements intact: Yes Pupils: PERRL Sinus: Normal Nasal: Normal Pharynx: Other - Edentulous Neck: Normal - Respiratory Respiratory status: No respiratory distress Chest status: Nontender Breath sounds: Normal Chest palpation: Normal - Cardiovascular Rhythm: Tachycardia Heart sounds: Normal auscultation Murmur: No - Abdominal Inspection: Normal Distension: No distension Bowel sounds: Normal Tenderness: Nontender Organomegaly: No organomegaly - Rectal Prostate: Other - Deferred - Genitourinary Scrotum: Other - Deferred - Back Back: Normal, Nontender - Extremities General upper extremity: Normal inspection, Nontender, Normal color, Normal ROM, Normal temperature General lower extremity: Normal inspection, Nontender, Normal color, Normal ROM, Normal temperature, Normal weight bearing. No: Gabriele's sign - Neurological Neuro grossly intact: Yes Cognition: Normal Orientation: AAOx4 [place] Coma Scale Eye Opening: Spontaneous Darrell Coma Scale Verbal: Oriented Darrell Coma Scale Motor: Obeys Commands Darrell Coma Scale Total: 15 Speech: Normal Motor strength normal: LUE, RUE, LLE, RLE Sensory: Normal - Psychological Associated symptoms: Agitated, Anxious, Decreased appetite, Depressed, Labile, Tearful. No: Auditory hallucinations, Excessive sleeping, Flat affect, Flight of ideas, Increased appetite, Manic, Paranoid, Psychomotor depression, Uatsdin preoccupation, Tactile hallucinations, Tangential speech, Unable to sleep, Visual hallucinations - Skin Skin Temperature: Warm Skin Moisture: Dry Skin Color: Normal Course - Vital Signs Vital signs: Temp Pulse Resp BP Pulse Ox 98.1 F 108 H 20 152/105 H 96 04/06/20 16:24 04/06/20 16:24 04/06/20 16:24 04/06/20 16:24 04/06/20 16:24 - Laboratory Results Result Diagrams: 04/06/20 16:43 04/06/20 16:43 Laboratory Results Interpreted: 04/06/20 04/06/20 16:43 16:43 MCV 102 H MCH 36.4 H Lymph % (Auto) 45.9 H Seg Neutrophils % 41.6 L BUN 4 L Glucose 117 H AST 184 H ALT 149 H Serum Alcohol 383 H* Critical Laboratory Results Reviewed: Yes Attending or Supervising Physician who Reviewed Labs: KUNAL LEE JR - Radiology Results Radiology Results Interpreted: 04/06/20 18:50 chantal Rudd read results Critical Radiology Results Reviewed: No Critical Results Attending or Supervising Physician who Reviewed Radiology: KUNAL LEE JR Critical Care Note - Critical Care Note Comments: I spoke with charge nurse Lesia and with mother and with patient about r eturning to [place]. Also spoke to Isreal about 1 more Ativan and I ointment for left eye conjunctivitis. Discharge - Discharge Clinical Impression: ETOH abuse Alcohol intoxication Qualifiers: Complication of substance-induced condition: uncomplicated Qualified Code(s): F10.920 - Alcohol use, unspecified with intoxication, uncomplicated Conjunctivitis, left eye Qualifiers: Conjunctivitis type: unspecified Qualified Code(s): H10.9 - Unspecified conjunctivitis Hypertension Qualifiers: Hypertension type: unspecified Qualified Code(s): I10 - Essential (primary) hypertension Condition: Stable Disposition: HOME, SELF-CARE Additional Instructions: Follow-up with [place] [facility] program. Avoid drinking. Avoid smoking. Enc ourage fluids like apple juice or Gatorade or chamomile tea. Return to ER as needed for true emergencies. Take medicines as directed. Prescriptions: Gabapentin [Neurontin 300 mg Capsule] 300 mg PO Q8 #45 cap Propranolol HCl 60 mg PO HSP PRN #30 tablet PRN Reason: Tobramycin Sulfate/Dexameth [Tobradex Oph Drops 2.5 Ml Bottle] 1 drop LFT_EYE TID #1 bottle Trazodone HCl 100 mg PO HSP PRN #10 tablet PRN Reason:
[2020-04-06] MEDS ORDERED: TOBRAMYCIN SULFATE/DEXAMETH OPH SUSP 2.5 ML OS ONE (18:35)
[2020-04-06] MEDS ORDERED: LABETALOL HCL INJ 20 MG/4 ML DISP.SYRIN IV ONE (18:40)
[2020-04-06 19:07] LABS: AMORPHOUS SEDIMENT,URINE TRACE /HPF; APPEARANCE,URINE SLIGHTLY-CLOUDY; BILIRUBIN,URINE NEGATIVE (NEGATIVE); COLOR,URINE YELLOW; GLUCOSE, URINE NEGATIVE (NEGATIVE); KETONES,URINE NEGATIVE (NEGATIVE); LEUKOCYTE ESTERASE,URINE NEGATIVE (NEGATIVE); NITRITE,URINE NEGATIVE (NEGATIVE); PROTEIN,URINE NEGATIVE (NEGATIVE); URINE SPECIFIC GRAVITY 1.006; UROBILINOGEN,URINE NEGATIVE mg/dL (<2.0)
[2020-04-06 20:21] VITALS: BP 117/75
== END 2020-04-06 20:21 | disposition home or self-care (01) ==
LOC: ER 16:21
DX: F10.120 Alcohol abuse with intoxication, uncomplicated (principal); H10.9 Unspecified conjunctivitis; K29.70 Gastritis, unspecified, without bleeding; I10 Essential (primary) hypertension; R53.1 Weakness; R25.2 Cramp and spasm; R53.81 Other malaise; R63.0 Anorexia; R11.2 Nausea with vomiting, unspecified; F17.210 Nicotine dependence, cigarettes, uncomplicated; F32.9 Major depressive disorder, single episode, unspecified; F41.9 Anxiety disorder, unspecified; Z79.899 Other long term (current) drug therapy
CPT/HCPCS: 96376; 99284; 96375; 96365; 96366; 36415; 80307; 82550; 85025; 80053; 81001; 84484; 71045; J3490 ×2; J2060; J3411; J7030; J7050